=== PATIENT | female | born 1965 | race Caucasian/White ===

== ENCOUNTER → 2016-10-07 | Outpatient (CLI) | payer OTHER ==
[~2016-10-07] MED LIST: CATHETER FLUSH 10 ML SYR IV PRN; CLN150C PO; FURO80TA3 PO; HYDR-757 PO; INSU100I29 SQ; LIRA0.6P3 SQ; LOSA50TA36 PO; LOSA50TA6 PO; LSRT50T PO; METF-478 PO; METO100T2 PO; MTF500T PO; MTP100TCR PO; PIOG30TA38 PO; POTA10CA43 PO; PRAV20TA3 PO; REGADENOSON 0.4 MG/5 ML SYR (LEXISCAN) IV ONE; TAMS0.4C9 PO
--- OUTSIDE RECORDS SUMMARY | 2016-10-07 11:19 | XMS REPORT ---
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
[2016-10-07 12:53] VITALS: BP 155/97
[2016-10-07 12:56] VITALS: BP 168/99
[2016-10-07 12:59] VITALS: BP 163/95
--- NOTE | 2016-10-08 07:35 | STRESS TEST ---
PROCEDURE PHYSICIAN: CHIDI HERRERA DATE OF PROCEDURE: 10/07/2016 LEXISCAN MYOVIEW STRESS TEST REPORT REFERRING PHYSICIAN: Dr. Deandra Alfaro, [facility]. INDICATION FOR THE PROCEDURE: Chest pain. BASELINE HEART RATE: 72 BASELINE BLOOD PRESSURE: 163/96. BASELINE EKG: Sinus rhythm with no ischemic changes. SUMMARY: The patient was injected with 1.03 mCi of technetium 99 Myoview and the resting images were obtained. Then the patient received 0.4 mg of Lexiscan followed by 29.5 mCi of technetium 99 Myoview. Throughout the test, there were no EKG changes. The resting and stress images were reviewed and compared in the short axis, horizontal long axis, and vertical long axis views. Review of the images showed breast attenuation affecting the quality of the images. There is questionable ischemia involving the whole anterior wall and anterolateral wall. SSS is 15, SDS 11, TID value 1.03. On the gated images, the left ventricle appeared to be normal size with normal contractility. Calculated ejection fraction 72%. CONCLUSION: 1. The patient tolerated Lexiscan well. 2. Breast attenuation with questionable ischemia involving the whole anterior wall and anterolateral wall. 3. Normal left ventricular size with normal contractility. Calculated ejection fraction 72%. Job ID: [id number] Dictated Date: 10/07/2016 17:53:15 Drier Feeder Date: 10/08/2016 07:31:25 / curtis
== END ==
LOC: CARD 11:15
PROVIDERS: ATTEND Internal Medicine Cardiovascular Disease
DX: R07.9 Chest pain, unspecified (principal); R06.02 Shortness of breath; I10 Essential (primary) hypertension; E78.5 Hyperlipidemia, unspecified
CPT/HCPCS: 78452; 93017

== ENCOUNTER → 2016-10-08 | Outpatient (CLI) | payer OTHER ==
[~2016-10-08] MED LIST changes: -CATHETER FLUSH 10 ML SYR IV PRN; -REGADENOSON 0.4 MG/5 ML SYR (LEXISCAN) IV ONE
[2016-10-08 15:34] LABS: BASOPHILS % (AUTO) 1 % (0-10); EOSINOPHILS # (AUTO) 0.1 10^3/uL (0.0-0.3); EOSINOPHILS % (AUTO) 1 % (0-10); LYMPHOCYTES # (AUTO) 1.9 X 10^3 (1.0-4.0); LYMPHOCYTES % (AUTO) 30 % (12-44); MEAN CORPUSCULAR HEMOGLOBIN 29 PG (25-34); MEAN CORPUSCULAR HGB CONC 33 G/DL (32-36); MEAN CORPUSCULAR VOLUME 88 FL (80-99); MEAN PLATELET VOLUME 9.9 FL (7.4-10.4); MONOCYTES # (AUTO) 0.6 X 10^3 (0.0-1.0); MONOCYTES % (AUTO) 10 % (0-12); NEUTROPHILS # (AUTO) 3.8 X 10^3 (1.8-7.8); NEUTROPHILS % (AUTO) 59 % (42-75); PLATELET COUNT 251 10^3/uL (130-400); RED BLOOD COUNT 4.41 10^6/uL (4.35-5.85); RED CELL DISTRIBUTION WIDTH 13.1 % (10.0-14.5); WHITE BLOOD COUNT 6.4 10^3/uL (4.3-11.0)
[2016-10-08 15:35] LABS: BILIRUBIN,URINE NEGATIVE (NEGATIVE); KETONES,URINE NEGATIVE (NEGATIVE); LEUKOCYTE ESTERASE ,URINE 3+ (NEGATIVE); NITRITE,URINE NEGATIVE (NEGATIVE); PH,URINE 6 (5-9); PROTEIN,URINE 1+ (NEGATIVE); UROBILINOGEN,URINE NORMAL (NORMAL)
[2016-10-08 15:43] LABS: PROTHROMBIN TIME PATIENT 12.7 SEC (12.2-14.7)
[2016-10-08 15:54] LABS: ALANINE AMINOTRANSFERASE 18 U/L (0-55); ALBUMIN 3.9 G/DL (3.2-4.5); ANION GAP 9 MMOL/L (5-14); ASPARTATE AMINO TRANSFERASE 16 U/L (5-34); BILIRUBIN,TOTAL 0.4 MG/DL (0.1-1.0); BLOOD UREA NITROGEN 13 MG/DL (7-18); BUN/CREATININE RATIO 15; CALCIUM 9.3 MG/DL (8.5-10.1); CARBON DIOXIDE 25 MMOL/L (21-32); CHLORIDE 110 MMOL/L (98-107); CREATININE SERUM 0.88 MG/DL (0.60-1.30); GFR ESTIMATED > 60; GLUCOSE 119 MG/DL (70-105); POTASSIUM 3.9 MMOL/L (3.6-5.0); SODIUM 144 MMOL/L (135-145); TOTAL PROTEIN 7.2 G/DL (6.4-8.2)
[2016-10-08 16:03] LABS: SQUAMOUS EPITHELIAL CELL,UR 25-50 /HPF
--- NOTE | 2016-10-09 06:56 | ECHOCARDIOGRAPHY REPORT ---
PROCEDURE PHYSICIAN: CHIDI HERRERA DATE OF PROCEDURE: 10/08/2016 TWO DIMENSIONAL ECHOCARDIOGRAM REPORT PRIMARY PHYSICIAN: OTHER PHYSICIAN: REFERRING PHYSICIAN: Dr. Deandra Wetzel, [facility] ORDERING PHYSICIAN: INDICATION FOR THE PROCEDURE: Chest pain. MEASUREMENTS DERIVED VALUES LV DIAMETER (LAX) NORMALS NORMALS Diastolic 4.5 (3.6-5.2) Eject. Fract. 60% (60%+/-6%) Systolic (2.3-3.9) Diastolic Vol. % Shortening (0.22-0.42) Systolic Vol. Aortic Root IVS THICKNESS Diastolic 1.2 (0.6-1.1) LVPW THICKNESS Diastolic 1.2 (0.6-1.1) LA DIAMETER Systolic 3.8 (2.1-3.7) FINDINGS: 1. Technically difficult study. 2. The left ventricle is normal in size. Endocardium was not well visualized in all segments. Overall systolic function appeared to be normal. Estimated ejection fraction 60%. 3. The left atrium is normal in size. No clot or thrombus were seen within the left atrium. 4. The right atrium and right ventricle are normal in size. No clot or thrombus were seen within the right side. 5. Mitral valve is normal in morphology with mild mitral regurgitation noted by color Doppler flow. No mitral valve prolapse. No mitral valve stenosis. 6. Aortic valve is trileaflet with normal opening and closing pattern. No significant aortic valve stenosis or regurgitation was seen. 7. Tricuspid valve is normal in morphology with mild tricuspid regurgitation noted by color Doppler flow. Doppler across tricuspid valve estimated pulmonary artery pressure of 12+ right atrial pressure. 8. Pulmonic valve is functioning normally. 9. No pericardial effusion. CONCLUSION: 1. Normal left ventricular size and systolic function. Estimated ejection fraction 60%. Endocardium was not well visualized in all segments. Mild left ventricular hypertrophy was noted. 2. Mild mitral and tricuspid regurgitation. 3. Estimated pulmonary artery pressure of 20 mmHg. Job ID: [id number] Dictated Date: 10/08/2016 16:56:09 Chief Petroleum Engineer Date: 10/09/2016 06:53:24 / curtis
== END ==
LOC: CARD 14:24
PROVIDERS: ATTEND Internal Medicine Cardiovascular Disease
DX: R07.9 Chest pain, unspecified (principal); R06.02 Shortness of breath; I10 Essential (primary) hypertension; E78.5 Hyperlipidemia, unspecified
CPT/HCPCS: 36415; 80053; 81000; 85025; 85610; 87088; 93306

== ENCOUNTER 2016-10-09 06:53 | Day surgery (SDC) | payer OTHER ==
[2016-10-09] VITALS (11 sets, daily range): BP systolic 113–149; BP diastolic 64–100
[~2016-10-09] VITALS: Ht 167.6 cm; Wt 149.9 kg
[~2016-10-09 06:53] MED LIST changes: -FURO80TA3 PO; -INSU100I29 SQ; -LIRA0.6P3 SQ; -LOSA50TA36 PO; -METF-478 PO; -METO100T2 PO; -PIOG30TA38 PO; -POTA10CA43 PO; -PRAV20TA3 PO
[2016-10-09] MEDS ORDERED: NS IV 1000 ML 1,000 ML ONE (07:11)
[2016-10-09] MEDS ORDERED: HEParin (CATH LAB) 2,000 ML IV ONE (07:11)
[2016-10-09] MEDS ORDERED: LIDOCAINE 1% INJ 20 ML (XYLOCAINE) VIAL ONE (07:11)
[2016-10-09] MEDS ORDERED: MIDAZOLAM 5 MG/5 ML (VERSED) VIAL ONE ×2 (07:39→08:22)
[2016-10-09] MEDS ORDERED: fentaNYL INJECTION 100 MCG/2 ML AMP ONE ×2 (07:39→08:22)
[2016-10-09] MEDS ORDERED: NS IV 1000 ML 1,000 ML IV SCH ×2 (07:45→08:48)
--- NOTE | 2016-10-09 07:50 | Cardiac Procedure Note-CS/ASA ---
Pre-Procedure Note Pre-Op Procedure Note H&P Reviewed The H&P was reviewed, patient examined and no changes noted. Date H&P Reviewed: Oct 09, 2016 Time H&P Reviewed: 07:49 Conscious Sedation Pre-Proced Time Reviewed: 07:49 ASA Class: 3 Airway Mallampati Classification: ([place] appropriate class) I. II. III, IV Lungs Heart ASA score ASA 1: a normal healthy patient ASA 2: a patient with a mild systemic disease (mid diabetes, controlled hypertension, obesity x ASA 3: a patient with a severe systemic disease that limits activity (angina , COPD, prior Myocardial infarction) ASA 4: a patient with an incapacitating disease that is a constant threat to life (CHF, renal failure) ASA 5: a moribund patient not expected to survive 24 hrs. (ruptured aneurysm) ASA 6: a declared brain patient whose organs are being harvested. For emergent operations, add the letter E after the classification Grade 3 Sedation Plan: Analgesia, Amnesia, Plan communicated to team members, Discussed options with patient/fam, Discussed risks with patient/fam Note The patient is an appropriate candidate to undergo the planned procedure, sedation, and anesthesia. The patient immediately re-assessed prior to indication. CHIDI HERRERA MD Oct 09, 2016 07:50
[2016-10-09] MEDS ORDERED: NITROGLYCERIN DRIP 25 MG/D5W 250 ML IV ONE (08:05)
[2016-10-09] MEDS ORDERED: HEParin 1000 UNIT/ML (10ML VIAL) FOR BOLUS ONE (08:05)
[2016-10-09] MEDS ORDERED: VERAPAMIL 5 MG/2 ML (CALAN) VIAL IV ONE (08:05)
[2016-10-09] MEDS ORDERED: METO100T2 PO (08:26)
[2016-10-09] MEDS ORDERED: LOSA50TA36 PO (08:26)
[2016-10-09] MEDS ORDERED: FURO80TA3 PO (08:26)
[2016-10-09] MEDS ORDERED: METF-478 PO (08:26)
[2016-10-09] MEDS ORDERED: PRAV20TA3 PO (08:26)
[2016-10-09] MEDS ORDERED: POTA10CA43 PO (08:26)
[2016-10-09] MEDS ORDERED: LIRA0.6P3 SQ (08:27)
[2016-10-09] MEDS ORDERED: INSU100I29 SQ (08:27)
[2016-10-09] MEDS ORDERED: PIOG30TA38 PO (08:27)
[2016-10-09] MEDS ORDERED: PATIENT MAY USE OWN MEDS, ALL PO SCH (09:00)
[2016-10-09] MEDS ORDERED: FLU TRIvalent (5 YOA+) 2016-17 (AFLURIA) 0.5 ML IM ONE (09:15)
[2016-10-09] MEDS ORDERED: HYDROcodone/APAP 5 MG/325 MG (LORTAB) TAB PO ONE (10:00)
--- NOTE | 2016-10-09 10:00 | Discharge Inst-Post CATH ---
Discharge Inst-CATH Post Cardiac Cath D/C Inst Follow Up/Plan Appointment with Dr Juarez's office in 2-4 weeks Hold Metformin for 48 hours CARDIAC CATH DISCHARGE INSTRUCTIONS *Hold Metformin for 48 hours post heart cath. ACTIVITY * Go Home directly and rest. * Limit activity of the leg (or wrist if it was used) for 7 days including aerobics, swimming, jogging, bicycling, etc. * Restrict stair-climbing for 7 days if possible, if not, climb up with your non -cath leg, then bring together on the same step. * Avoid lifting, pushing, pulling or excessive movement of the affected extremity for 7 days. * Customary sexual activity may be resumed after 2 days-use caution not to use a position that strains or causes pain to the affected extremity. * No driving for 24 hours. * NO SMOKING. * Avoid straining for bowel movements for 7 days. * Gentle walking on level ground is allowed. * Returning to work will depend on the type of procedure and the results. Your doctor will discuss this with you. CALL YOUR DOCTOR FOR ANY OF THE FOLLOWING: *If bleeding from the puncture site occurs- Apply gentle pressure to site with clean cloth and call your doctor or EMS. * If a knot or lump forms under the skin, increases in size, or causes pain. * If bruising appears to be worsening or moving further down your leg instead of disappearing. * Temperature above 101 F. CARE OF YOUR GROIN INCISION; * Bruising or purple discoloration of the skin near the puncture site is common. * You may shower only, no bathtub bathing for 5 days. Be careful to avoid slipping as your leg may feel stiff. * If a closure device was used on your femoral artery, please see the attached guide regarding care of the device and your leg. * REMOVE the dressing from your groin the next day after your procedure in the shower. CARE OF YOUR WRIST INCISION; * Bruising or purple discoloration of the skin near the puncture site is common. * You may shower. * DO NOT submerge wrist. * Remove dressing in 24 hours. CHIDI JUAREZ MD Oct 09, 2016 10:00
[2016-10-09] MEDS ORDERED: HYDROcodone/APAP 5 MG/325 MG (LORTAB) TAB ONE (10:01)
--- NOTE | 2016-10-09 10:45 | DISCHARGE SUMMARY ---
PROCEDURE PHYSICIAN: CHIDI HERRERA DATE OF PROCEDURE: 10/09/2016 REFERRING PHYSICIAN: [facility]. BRIEF HISTORY: Mrs. Hall is a 51-year-old lady with history of hypertension, recurrent chest pain. She had an abnormal stress test. She was scheduled for cardiac catheterization. PROCEDURE NOTE: After explaining the procedure to the patient, all pros and cons were explained. All questions were answered. The patient signed a consent, then she was placed on the cardiac catheterization laboratory. The right wrist was prepped in a sterile fashion, ultrasound was used for access to the right radial artery. 6-Ukrainian sheath was placed. The patient was given a combination of nitroglycerin with verapamil and followed by 5,000 units of IV heparin. Then I used Freddie catheter, advanced to the left coronary system, nonselective angiogram was done, exchanged over long Storq wire into Eric right catheter. The Eric right catheter into the right coronary artery, angiogram was done. The Freddei catheter was prolapsed into the left ventricular cavity. Pressure was measured, left ventriculogram was done. Pullback LV to aorta was done. At the end of the procedure, sheath was removed with manual pressure. No complication. FINDINGS: HEMODYNAMICS: LV pressure 139/30, end-diastolic pressure of 30, aortic pressure 127/81, mean of 103. ANATOMY: 1. LEFT MAIN CORONARY ARTERY: The left main coronary artery is bifurcating to left anterior descending and left circumflex artery with no obstructive disease. 2. LEFT ANTERIOR DESCENDING ARTERY: The left anterior descending artery is slightly tortuous with mild disease, nonobstructive disease. 3. LEFT CIRCUMFLEX ARTERY: The left circumflex artery is moderate in size with no obstructive disease. 4. RIGHT CORONARY ARTERY: The right coronary artery is dominant artery with no obstructive disease. 5. LEFT VENTRICULOGRAM: Left ventriculogram was done in the right anterior oblique position. The left ventricle is normal in size. Systolic function is normal. Estimated ejection fraction 60%. CONCLUSION: 1. Mild coronary artery disease, nonobstructive disease. 2. Normal left ventricular systolic function. Estimated ejection fraction 60%. DISCUSSION AND RECOMMENDATION: Mrs. Hall's abnormal stress test is probably due to extracardiac attenuation. Medical therapy is recommended. No intervention is warranted. FINAL DIAGNOSES: 1. Chest pain, nonspecific etiology. 2. Coronary artery disease. 3. Hypertension. 4. Hyperlipidemia. Job ID: [id number] Dictated Date: 10/09/2016 08:53:46 Air Quality Technician Date: 10/09/2016 10:44:12/iljuliet
--- NOTE | 2016-10-09 12:23 | Diagnostic Imaging Report ---
INDICATION: Lung mass. TECHNIQUE: Two view chest 12:07 PM CORRELATION STUDY: CT 11/04/2014 FINDINGS: Previously noted nodule in the right lung base on prior CT imaging is barely perceptible on chest radiograph. This measures approximately 19 mm. Previously measured approximately [address] imaging. Remaining lung asif are overall clear and unremarkable. Heart size, mediastinum and hilar structures likely accentuated by limited depth of inspiration. Mild multilevel degenerative changes with slightly accentuated thoracic kyphotic curvature. IMPRESSION: The known right lower lobe pulmonary nodule is barely visualized on chest radiograph. There is a slight increase in size present. However, this may be owing to differences in technique, however, an increase in size is not excluded. Consideration for repeat CT imaging of the chest is recommended. Dictated by: Dictated on workstation # [id number]
== END 2016-10-09 13:05 | disposition home or self-care (01) ==
LOC: CATH 06:53 → SURG 09:13 → CATH 13:05
PROVIDERS: ATTEND Internal Medicine Cardiovascular Disease
DX: R94.39 Abnormal result of other cardiovascular function study (principal); R07.89 Other chest pain; E78.5 Hyperlipidemia, unspecified; I10 Essential (primary) hypertension; I25.10 Atherosclerotic heart disease of native coronary artery without angina pectoris; E66.01 Morbid (severe) obesity due to excess calories; E11.9 Type 2 diabetes mellitus without complications; G47.33 Obstructive sleep apnea (adult) (pediatric); R91.8 Other nonspecific abnormal finding of lung field; Z79.899 Other long term (current) drug therapy; Z79.84 Long term (current) use of oral hypoglycemic drugs; Z68.43 Body mass index [BMI] 50.0-59.9, adult
CPT/HCPCS: 71020; 93458

== ENCOUNTER 2017-05-04 16:31 | Emergency (ER) | payer SELFPAY ==
[~2017-05-04] VITALS: Ht 167.6 cm; Wt 149.9 kg
[~2017-05-04 16:31] MED LIST changes: +FURO80TA3 PO; +INSU100I29 SQ; +LIRA0.6P3 SQ; +LOSA50TA36 PO; +METF-478 PO; +METO100T2 PO; +PIOG30TA38 PO; +POTA10CA43 PO; +PRAV20TA3 PO
--- OUTSIDE RECORDS SUMMARY | 2017-05-04 16:37 | XMS REPORT ---
Author Author GIORGIO PEAROSN Organization eClinicalWorks Address Unknown Phone Unavailable Care Team Providers Care Industrial Nurse Name Role Phone GIORGIO PEARSON CP Unavailable Allergies No Known Allergies Problems Problem Type Condition Code Onset Dates Condition Status Problem Screening examination for pulmonary tuberculosis V74.1 Active Problem Acute bronchitis 466.0 Active Problem Abdominal pain, unspecified site 789.00 Active Problem Cellulitis 682.9 Active Problem Chronic pain 338.29 Active Problem Sleep apnea 780.57 Active Problem Encounter for long-term (current) use of other medications V58.69 Active Problem Shortness of breath 786.05 Active Problem Hypertension 401.9 Active Problem Unspecified myalgia and myositis 729.1 Active Problem Cellulitis and abscess of unspecified site 682.9 Active Problem Pain in soft tissues of limb 729.5 Active Problem Calculus of kidney 592.0 Active Problem Swelling, mass, or lump in chest 786.6 Active Problem Acute sinusitis, unspecified 461.9 Active Problem Health examination of defined subpopulation V70.5 Active Problem Lumbago 724.2 Active Problem Oral aphthae 528.2 Active Problem Diabetes mellitus without mention of complication, type II or unspecified type, not stated as uncontrolled 250.00 Active Problem Radial styloid tenosynovitis 727.04 Active Medications No Known Medications Results No Known Results Summary Purpose eClinicalWorks Submission
--- OUTSIDE RECORDS SUMMARY | 2017-05-04 16:37 | XMS REPORT ---
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 674484959 Problem Fibromyalgia M79.7 Active 152390864 Problem Chronic pain syndrome G89.4 Active 663507574 Problem Hyperlipidemia, unspecified hyperlipidemia type E78.5 Active 89074353 Problem Thyroid disorder E07.9 Active 20760074 Problem Hypercholesterolemia E78.00 Active 65235108 Problem Pedal edema R60.0 Active 483187346 Problem Cough R05 Active 71457589 Problem Central sleep apnea due to medical condition G47.37 Active 04538324 Problem Sleep apnea G47.30 Active 11580789 Problem Obesity E66.9 Active 784486366 Problem History of kidney stones Z87.442 Active 385507653 Problem HTN (hypertension) I10 Active 56359203 Problem Diabetes E11.9 Active 346924612 ALLERGIES Substance Reaction Event Type Date Status Lisinopril dizziness Drug Allergy Aug, Active SOCIAL HISTORY No smoking Hx information available PLAN OF CARE Activity Details Follow Up 2 Weeks Reason:cough VITAL SIGNS Height 66 in 2016-09-03 Weight 321.4 lbs 2016-09-03 Temperature 97.8 degrees Fahrenheit 2016-09-03 Heart Rate 78 bpm 2016-09-03 Respiratory Rate 20 2016-09-03 BMI 51.87 kg/m2 2016-09-03 Blood pressure systolic 128 mmHg 2016-09-03 Blood pressure diastolic 86 mmHg 2016-09-03 MEDICATIONS Medication Instructions Dosage Frequency Start Date End Date Duration Status ProAir HFA 108 (90 Base) MCG/ACT Inhalation every 4 hrs 2 puffs as needed 4h Aug, Active Actos 45 MG Orally Once a day 1 tablet 24h 24 Apr, 2015 Active Losartan Potassium 50 mg Orally Once a day 1 tablet 24h Active Potassium Chloride ER 10 MEQ Orally Twice a day 1 tablet with food 12h Aug, Sep, 30 day(s) Active Victoza 18 MG/3ML Subcutaneous Once a day 1.8 24h Active Insulin Detemir 100 UNIT/ML Subcutaneous once a day 25 units nightly 24h Feb, Active Pen [place] 31G X 6 MM as directed 24h Aug, Active Metformin HCl 500 MG Orally Twice a day 2 tablet with meals 12h Active ProAir HFA 90 mcg/actuation inhale 2-4 puffs by Inhalation route every 4 hours as needed PRN shortness of breath/cough Jul, Active Flomax 0.4 MG 1 capsule by Oral route 1 time per day Oct, Active Furosemide 40 mg Orally Once a day 1 tablet 24h Aug, 30 day(s) Active Pravastatin Sodium 20 mg Orally Once a day 1 tablet 24h Apr, 90 days Active Silvadene 1 % Externally Once a day 1 application to affected area 24h Aug, Active Levaquin 500 MG Orally Once a day 1 tablet 24h Aug, Sep, 10 day(s) Active Neurontin 100 MG Orally Three times a day 1 capsule 8h Active Metoprolol Succinate ER 100 MG Orally 2 times a day 1 tab bid 12h Nov, Active Invokana 300 MG Orally Once a day 1 tablet 24h Nov, Active RESULTS Name Result Date Reference Range A1C (IN HOUSE) 2016-09-03 A1C IN HOUSE 6.2 4.3 - 5.6 % Previous A1c 5.8 Lot [id number] Exp date 06/2018 MICROALBUMIN, URINE (IN HOUSE) 2016-09-03 MICROALBUMIN normal Lot # [id number] Exp date 08/2017 Clarity clear Color yellow ALB 10 CRE 300 A:C (IN HOUSE) <30 Control + Control Lot # Exp UA LONG DIP (IN HOUSE) 2016-09-03 Lot # [id number] Exp date 04/2017 Clarity clear Color yellow Odor none GLU negative BENITEZ negative KET negative SG >=1.030 BLO negative pH 5.5 Protein negative URO 0.2 NIT negative ARSENIO 1+ Lot # Exp date Xray : Chest (IN HOUSE) 2016-09-03 CULTURE, URINE 2016-09-03 Urine Culture, Routine Final report Result 1 No growth PROCEDURES Procedure Date Ordered Related Diagnosis Body Site MICROALBUMIN, SEMIQUANT Sep 03, 2016 CHEST X-RAY Sep 03, 2016 Office Visit, Est Pt., Level 4 Sep 03, 2016 GLYCATED HEMOGLOBIN TEST Sep 03, 2016 URINE CULTURE/COLONY COUNT Sep 03, 2016 IMMUNIZATIONS No Known Immunizations
--- OUTSIDE RECORDS SUMMARY | 2017-05-04 16:37 | XMS REPORT ---
Author GIORGIO Nick Organization eClinicalWorks Address Unknown Phone Unavailable Care Team Providers Care Compensator Name Role Phone GIORGIO PEARSON Unavailable Allergies No Known Allergies Problems Problem Type Condition Code Onset Dates Condition Status Problem Sleep apnea 780.57 Active Problem History of kidney stones Z87.442 Active Problem HTN (hypertension) I10 Active Problem HTN (hypertension) with goal to be determined I10 Active Problem Chronic pain syndrome G89.4 Active Problem Fibromyalgia M79.7 Active Problem Obesity E66.9 Active Problem Sleep apnea G47.30 Active Problem Diabetes E11.9 Active Problem 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
--- OUTSIDE RECORDS SUMMARY | 2017-05-04 16:37 | XMS REPORT ---
Author Author HENOK BENNETT Organization eClinicalWorks Address Unknown Phone Unavailable Care Team Providers Care Business Systems Technician Name Role Phone HENOK BENNETT CP Unavailable [...] Start Date End Date Status Dosage Invokana [facility][NOTE 3] [address]-14 300 MG Orally Once a day December 06, 2015 1 tablet Results No Known Results Summary Purpose eClinicalWorks Submission
--- OUTSIDE RECORDS SUMMARY | 2017-05-04 16:37 | XMS REPORT ---
Author GIORGIO Nick [facility] eClinicalWorks Address Unknown Phone Unavailable Care Team Providers Care Clinique Counter Manager Name Role Phone GIORGIO PEARSON CP Unavailable Allergies, Adverse Reactions, Alerts Substance Reaction Event Type Lisinopril Info Not Available Drug Allergy Problems Problem Type Condition Code Onset Dates Condition Status Problem Abdominal pain, unspecified site 789.00 Active Problem Shortness of breath 786.05 Active Problem Acute bronchitis 466.0 Active Problem Sleep apnea 780.57 Active Problem Calculus of kidney 592.0 Active Problem Cellulitis 682.9 Active Assessment Cellulitis, unspecified L03.90 Active Problem HTN (hypertension) I10 Active Problem Unspecified myalgia and myositis 729.1 Active Problem Encounter for long-term (current) use of other medications V58.69 Active Problem Chronic pain 338.29 Active Problem Hypertension 401.9 Active Problem Pain in soft tissues of limb 729.5 Active Problem Lumbago 724.2 Active Problem Swelling, mass, or lump in chest 786.6 Active Problem Cellulitis and abscess of unspecified site 682.9 Active Problem Health examination of defined subpopulation V70.5 Active Problem Oral aphthae 528.2 Active Problem Diabetes mellitus without mention of complication, type II or unspecified type, not stated as uncontrolled 250.00 Active Problem Radial styloid tenosynovitis 727.04 Active Problem Acute sinusitis, unspecified 461.9 Active Problem Screening examination for pulmonary tuberculosis V74.1 Active Medications Medication Code System Code Instructions Start Date End Date Status Dosage Neurontin [facility] [address]-06 100 MG Orally Twice a day Jul 10, 2014 1 capsule by Oral route 3 times per day PRN for pain Hydrocodone-Acetaminophen [facility] [address]-25 10-325 MG Orally every 6 hrs Aug 12, 2015 1 tablet as needed Metformin HCl [facility] [address]-62 1000 MG Orally Twice a day Jun 11, 2015 1 tablet with meals Pravastatin Sodium [facility] [address]-89 20 MG Orally Once a day May 03, 2015 1 tablet losartan ND 0 50 mg Once a day Aug 13, 2014 Aug 30, 2015 take 1 tablet (50 mg) by oral route once daily Actos [facility] [address]-91 30 MG Orally Once a day May 02, [address] [facility] [address]-57 0.4 mg November 05, 2014 1 capsule by Oral route 1 time per day ProAir HFA [facility] [address]-64 90 mcg/actuation Jul 10, 2014 inhale 2-4 puffs by Inhalation route every 4 hours as needed PRN shortness of breath/ cough Sulfamethoxazole-Trimethoprim [facility] [address]-96 800-160 MG Orally Twice a day Aug 12, 2015 Aug 22, 2015 1 tablet Metoprolol Succinate ER [facility] [address]-95 100 MG 1 TAB orally 2 times a day November 20, 2013 1 tab bid Procedures Procedure Coding System Code Date Office Visit, Est Pt., Level 3 CPT-4 06612 Aug 16, 2015 Vital Signs Date/Time: Aug 16, 2015 Temperature 98.1 F Weight 341.9 lbs Height 66 in BMI 55.18 Index Blood Pressure Diastolic 90 mmHg Blood Pressure Systolic 140 mmHg Cardiac Monitoring Heart Rate 72 bpm Results No Known Results Summary Purpose eClinicalWorks Submission
--- OUTSIDE RECORDS SUMMARY | 2017-05-04 16:38 | XMS REPORT ---
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 465711571 Problem Fibromyalgia M79.7 Active 557104101 Problem Chronic pain syndrome G89.4 Active 567883267 Problem Hyperlipidemia, unspecified hyperlipidemia type E78.5 Active 96157081 Problem Thyroid disorder E07.9 Active 13317453 Problem Hypercholesterolemia E78.00 Active 83443874 Problem Pedal edema R60.0 Active 168862630 Problem Cough R05 Active 69843454 Problem Central sleep apnea due to medical condition G47.37 Active 48024542 Problem Sleep apnea G47.30 Active 30865046 Problem Obesity E66.9 Active 269396956 Problem History of kidney stones Z87.442 Active 016250223 Problem HTN (hypertension) I10 Active 52334436 Problem Diabetes E11.9 Active 698494814 ALLERGIES Substance Reaction Event Type Date Status Lisinopril dizziness Drug Allergy Sep, Active SOCIAL HISTORY Never Assessed PLAN OF CARE Activity Details Follow Up 2 Weeks Reason:cp Pending Test MAGNESIUM, SERUM Pending Test BMP VITAL SIGNS Height 66 in 2016-09-21 Weight 335.6 lbs 2016-09-21 Temperature 97.9 degrees Fahrenheit 2016-09-21 Heart Rate 84 bpm 2016-09-21 Respiratory Rate 20 2016-09-21 BMI 54.16 kg/m2 2016-09-21 Blood pressure systolic 138 mmHg 2016-09-21 Blood pressure diastolic 84 mmHg 2016-09-21 MEDICATIONS Medication Instructions Dosage Frequency Start Date End Date Duration Status Neurontin 100 MG Orally Three times a day 1 capsule 8h Active Metoprolol Succinate ER 100 MG Orally 2 times a day 1 tab bid 12h 14 Nov, 2013 Active Pravastatin Sodium 20 mg Orally Once a day 1 tablet 24h Apr, Active Victoza 18 MG/3ML Subcutaneous Once a day 1.8 24h Active Furosemide 40 mg Orally Once a day 2 capsules 24h Aug, 30 day(s ) Active Pen [place] 31G X 6 MM as directed 24h Aug, Active Metformin HCl 500 MG Orally Twice a day 2 tablet with meals 12h Active Hydrocodone-Acetaminophen 10-325 MG Orally every 6 hrs 1 tablet as needed 6h Aug, Active Potassium Chloride ER 10 MEQ Orally Twice a day 2 tablet with food 12h Aug, Oct, 30 day(s) Active Silvadene 1 % Externally Once a day 1 application to affected area 24h Aug, Active Actos 45 MG Orally Once a day 1 tablet 24h Apr, Active ProAir HFA 108 (90 Base) MCG/ACT Inhalation every 4 hrs 2 puffs as needed 4h Aug, Active Insulin Detemir 100 UNIT/ML Subcutaneous once a day 25 units nightly 24h Feb, Active Losartan Potassium 50 mg Orally Once a day 1 tablet 24h Active Flomax 0.4 MG 1 capsule by Oral route 1 time per day Oct, Active RESULTS No Results PROCEDURES Procedure Date Ordered Result Body Site EKG, TRACING (IN-HOUSE) 2016-09-21 N/A ASSAY OF MAGNESIUM Sep 21, 2016 ELECTROCARDIOGRAM, TRACING Sep 21, 2016 BASIC METABOLIC PANEL Sep 21, 2016 IMMUNIZATIONS No Known Immunizations MEDICAL (GENERAL) HISTORY Type Description Date Medical History MRSA Medical History Type 2 DM Medical History Alcoholism-has been sober for 10 years Medical History Sexual contact with Hep C Medical History Morbid Obesity Medical History Hypertension Medical History Kidney stones november 04 2014 Medical History Mass in lung 13mm seeing Dr. Segura non cancerous Medical History Sleep Apnea Medical History cellulitis left leg Surgical History Hysterectomy-Total for adhesions 1987 Surgical History section 1982 & 1987 Surgical History cholecystectomy 1996 Hospitalization History surgeries
--- OUTSIDE RECORDS SUMMARY | 2017-05-04 16:38 | XMS REPORT ---
Author GIORGIO Nick [facility] eClinicalWorks Address Unknown Phone Unavailable Care Team Providers Care Storekeeper Engineering Name Role Phone GIORGIO PEARSON CP Unavailable [...] 592.0 Active Problem Cellulitis 682.9 Active Assessment Cellulitis and abscess of unspecified site 682.9 Active Problem HTN (hypertension) I10 Active Problem [...] Instructions Start Date End Date Status Dosage Victoza [facility] [address]-00 18 MG/3ML Subcutaneous Once a day Aug 16, 2015 Aug 10, 2016 1.8 Metformin HCl [facility] [address]-38 1000 MG Orally Twice a day Jun 11, 2015 1 tablet with meals Metoprolol Succinate ER [facility] [address]-05 100 MG 1 TAB orally 2 times a day November 20, 2013 1 tab bid Pravastatin Sodium [facility] [address]-61 20 MG Orally Once a day May 03, 2015 1 tablet Silvadene [facility] [address]-05 1 % Externally Once a day Aug 19, 2015 1 application to affected area Sulfamethoxazole-Trimethoprim [facility] [address]-74 800-160 MG Orally Twice a day Aug 12, 2015 Aug 22, 2015 1 tablet Flomax [facility] [address]-09 0.4 mg November 05, 2014 1 capsule by Oral route 1 time per day Hydrocodone-Acetaminophen [facility] [address]-04 10-325 MG Orally every 6 hrs Aug 12, 2015 1 tablet as needed Pen [place] [facility] [address]-40 31G X 6 MM Once a day Aug 16, 2015 as directed Neurontin [facility] [address]-94 100 MG Orally Twice a day Jul 10, 2014 1 capsule by Oral route 3 times per day PRN for pain ProAir HFA [facility] [address]-65 90 mcg/actuation Jul 10, 2014 inhale 2-4 puffs by Inhalation route every 4 hours as needed PRN shortness of breath/ cough Actos [facility] [address]-56 30 MG Orally Once a day May 02, 2015 1 tablet losartan [facility] 0 50 mg Once a day Aug 13, 2014 Aug 30, 2015 take 1 tablet (50 mg) by oral route once daily Procedures Procedure Coding System Code Date Office Visit, Est Pt., Level 3 CPT-4 33324 Aug 20, 2015 Vital Signs Date/Time: Aug 20, 2015 Temperature 97.6 F Weight 342 lbs Height 66 in BMI 55.19 Index Blood Pressure Diastolic 84 mmHg Blood Pressure Systolic 142 mmHg Cardiac Monitoring Heart Rate 78 bpm Results No Known Results Summary Purpose eClinicalWorks Submission
--- OUTSIDE RECORDS SUMMARY | 2017-05-04 16:38 | XMS REPORT ---
Author Author GIORGIO PEARSON Organization 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 046851318 Problem Fibromyalgia M79.7 Active 765578026 Problem Chronic pain syndrome G89.4 Active 825069081 Problem Hyperlipidemia, unspecified hyperlipidemia type E78.5 Active 68256799 Problem Thyroid disorder E07.9 Active 41912495 Problem Hypercholesterolemia E78.00 Active 54356143 Problem Pedal edema R60.0 Active 303977173 Problem Cough R05 Active 89098672 Problem Central sleep apnea due to medical condition G47.37 Active 69071819 Problem Sleep apnea G47.30 Active 72865664 Problem Obesity E66.9 Active 819863613 Problem History of kidney stones Z87.442 Active 364258598 Problem HTN (hypertension) I10 Active 01341701 Problem Diabetes E11.9 Active 485782023 ALLERGIES Substance Reaction Event Type Date Status Lisinopril dizziness Drug Allergy Sep, Active SOCIAL HISTORY Never Assessed PLAN OF CARE Activity Details Follow Up 4 Weeks Reason:edema VITAL SIGNS Height 66 in 2016-09-28 Weight 335.0 lbs 2016-09-28 Temperature 97.6 degrees Fahrenheit 2016-09-28 Heart Rate 82 bpm 2016-09-28 Respiratory Rate 20 2016-09-28 BMI 54.06 kg/m2 2016-09-28 Blood pressure systolic 127 mmHg 2016-09-28 Blood pressure diastolic 86 mmHg 2016-09-28 MEDICATIONS Medication Instructions Dosage Frequency Start Date End Date Duration Status Silvadene 1 % Externally Once a day 1 application to affected area 24h Aug, Active Losartan Potassium 50 mg Orally Once a day 1 tablet 24h Active Actos 45 MG Orally Once a day 1 tablet 24h 24 Apr, 2015 Active Pen [place] 31G X 6 MM as directed 24h 08 Aug, 2015 Active Lasix 80 MG Orally Once a day 1 tablet 24h 20 Sep, 2016 90 days Active Neurontin 100 MG Orally Three times a day 1 capsule 8h Active ProAir HFA 108 (90 Base) MCG/ACT Inhalation every 4 hrs 2 puffs as needed 4h Aug, Active Metoprolol Succinate ER 100 MG Orally 2 times a day 1 tab bid 12h Nov, Active Potassium Chloride ER 10 MEQ Orally Twice a day 2 tablet with food 12h Aug, 30 day(s) Active Victoza 18 MG/3ML Subcutaneous Once a day 1.8 24h Active Furosemide 40 mg Orally Once a day 2 capsules 24h Aug, 30 day(s ) Active Metformin HCl 500 MG Orally Twice a day 2 tablet with meals 12h Active Insulin Detemir 100 UNIT/ML Subcutaneous once a day 25 units nightly 24h Feb, Active Pravastatin Sodium 20 mg Orally Once a day 1 tablet 24h Apr, Active RESULTS No Results PROCEDURES No Known procedures IMMUNIZATIONS No Known Immunizations MEDICAL (GENERAL) HISTORY [...]
--- OUTSIDE RECORDS SUMMARY | 2017-05-04 16:38 | XMS REPORT ---
Author GIORGIO Nick [facility] eClinicalWorks Address Unknown Phone Unavailable Care Team Providers Care Hair Assistant Name Role Phone GIORGIO PEARSON CP Unavailable Allergies, Adverse Reactions, Alerts Substance Reaction Event Type Lisinopril Info Not Available Drug Allergy Problems Problem Type Condition ICD-9 Code Onset Dates Condition Status Problem Radial styloid tenosynovitis 727.04 Active Problem Abdominal pain, unspecified site 789.00 Active Problem Screening examination for pulmonary tuberculosis V74.1 Active Problem Chronic pain 338.29 Active Assessment Unspecified myalgia and myositis 729.1 Active Problem Hypertension 401.9 Active Assessment Diabetes mellitus without mention of complication, type II or unspecified type, not stated as uncontrolled 250.00 Active Assessment Lumbago 724.2 Active Problem Cellulitis 682.9 Active Problem Shortness of breath 786.05 Active Problem Acute bronchitis 466.0 Active Problem Unspecified myalgia and myositis 729.1 Active Problem Encounter for long-term (current) use of other medications V58.69 Active Problem Swelling, mass, or lump in chest 786.6 Active Problem Cellulitis and abscess of unspecified site 682.9 Active Assessment Cellulitis 682.9 Active Problem Calculus of kidney 592.0 Active Problem Diabetes mellitus without mention of complication, type II or unspecified type, not stated as uncontrolled 250.00 Active Problem Acute sinusitis, unspecified 461.9 Active Problem Pain in soft tissues of limb 729.5 Active Problem Health examination of defined subpopulation V70.5 Active Problem Lumbago 724.2 Active Problem Oral aphthae 528.2 Active Medications Medication Code System Code Instructions Start Date End Date Status Dosage Keflex [facility] [address]-09 500 MG Orally Four times a day Apr 18, 2015 Apr 28, 2015 1 capsule ProAir HFA [facility] [address]-85 90 mcg/actuation Jul 10, 2014 inhale 2-4 puffs by Inhalation route every 4 hours as needed PRN shortness of breath/ cough Hydrocodone-Acetaminophen [facility] [address]-86 7.5-325 MG Orally every 8 hrs Mar 20, 2015 Apr 19, 2015 1 tablet as needed metformin NDC 0 500 mg Aug 13, 2014 take 1 tablet by Oral route 2 times per day with the evening meal Flomax [facility] [address]-30 0.4 mg November 05, 2014 1 capsule by Oral route 1 time per day Metoprolol Succinate ER [facility] [address]-01 100 mg 1 TAB orally 2 times a day November 20, 2013 2 tablet by Oral route 2 times per day losartan NDC 0 50 mg Aug 13, 2014 take 1 tablet (50 mg) by oral route once daily Neurontin [facility] [address]-83 100 mg Jul 10, 2014 1 capsule by Oral route 3 times per day PRN for pain Victoza [facility] [address]-73 18 MG/3ML Subcutaneous Once a day 0.2 ml Procedures Procedure Coding System Code Date Office Visit, Est Pt., Level 4 CPT-4 53413 Apr 18, 2015 Vital Signs Date/Time: Apr 18, 2015 Temperature 96.7 F Weight 345.2 lbs Height 66 in BMI 55.71 Index Blood Pressure Diastolic 70 mmHg Blood Pressure Systolic 112 mmHg Cardiac Monitoring Heart Rate 78 bpm Results No Known Results Summary Purpose eClinicalWorks Submission
--- OUTSIDE RECORDS SUMMARY | 2017-05-04 16:38 | XMS REPORT ---
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 [address]-13 100 UNIT/ML Subcutaneous once a day March 02, 2016 25 units nightly Results No Known Results Summary Purpose eClinicalWorks Submission
--- OUTSIDE RECORDS SUMMARY | 2017-05-04 16:38 | XMS REPORT ---
Author GIORGIO Nick [facility] eClinicalWorks Address Unknown Phone Unavailable Care Team Providers Care Teacher Of The Sight Impaired Name Role Phone GIORGIO PEARSON CP Unavailable [...] Instructions Start Date End Date Status Dosage Pravastatin Sodium [facility] [address]-87 20 MG Orally Once a day May 03, 2015 1 tablet Metoprolol Succinate ER [facility] [address]-37 100 MG 1 TAB orally 2 times a day November 20, 2013 1 tab bid ProAir HFA [facility] [address]-67 90 mcg/actuation Jul 10, 2014 inhale 2-4 puffs by Inhalation route every 4 hours as needed PRN shortness of breath/ cough Metformin HCl [facility] [address]-94 1000 MG Orally Twice a day Jun 11, 2015 1 tablet with meals Sulfamethoxazole-Trimethoprim [facility] [address]-38 800-160 MG Orally Twice a day Aug 12, 2015 Aug 22, 2015 1 tablet Actos [facility] [address]-39 30 MG Orally Once a day May 02, 2015 1 tablet losartan NDC 0 50 mg Once a day Aug 13, 2014 Aug 30, 2015 take 1 tablet (50 mg) by oral route once daily Neurontin [facility] [address]-50 100 MG Orally Twice a day Jul 10, 2014 1 capsule by Oral route 3 times per day PRN for pain Hydrocodone-Acetaminophen [facility] [address]-77 10-325 MG Orally every 6 hrs Aug 12, 2015 1 tablet as needed Procedures Procedure Coding System Code Date CULTURE, BACTERIA, OTHER CPT-4 42441 Aug 12, 2015 ROCEPHIN 1 GM (IM) CPT-4 J0696 Aug 12, 2015 CULTURE BACTERIA ANAEROBIC CPT-4 46333 Aug 12, 2015 Office Visit, Est Pt., Level 4 CPT-4 48017 Aug 12, 2015 THER/PROPH/DIAG INJ, SC/IM CPT-4 95869 Aug 12, 2015 Vital Signs Date/Time: Aug 12, 2015 Temperature 97.5 F Weight 340.9 lbs Height 66 in BMI 55.02 Index Blood Pressure Diastolic 120 mmHg Blood Pressure Systolic 160 mmHg Cardiac Monitoring Heart Rate 80 bpm Results No Known Results Summary Purpose eClinicalWorks Submission
--- OUTSIDE RECORDS SUMMARY | 2017-05-04 16:38 | XMS REPORT ---
Author GIORGIO Nick Organization eClinicalWorks Address Unknown Phone Unavailable Care Team Providers Care Rack Pusher Name Role Phone GIORGIO PEARSON CP Unavailable Allergies No Known Allergies Problems Problem Type Condition Code Onset Dates Condition Status Problem Abdominal pain, unspecified site 789.00 Active Problem Shortness of breath 786.05 Active Problem Acute bronchitis 466.0 Active Problem Sleep apnea 780.57 Active Problem Calculus of kidney 592.0 Active Problem Cellulitis 682.9 Active Problem HTN (hypertension) I10 Active [...] Start Date End Date Status Dosage Victoza [facility] [address]-76 18 MG/3ML Subcutaneous Once a day Aug 16, 2015 Aug 10, 2016 1.8 Actos [facility] [address]-16 30 MG Orally Once a day May 02, 2015 1 tablet Pen [place] [facility] [address]-22 31G X 6 MM Once a day Aug 16, 2015 as directed Results No Known Results Summary Purpose eClinicalWorks Submission
--- OUTSIDE RECORDS SUMMARY | 2017-05-04 16:38 | XMS REPORT ---
Author GIORGIO Nick [facility] eClinicalWorks Address Unknown Phone Unavailable Care Team Providers Care Lead Military Analyst Name Role Phone GIORGIO PEARSON CP Unavailable Allergies, Adverse Reactions, Alerts Substance Reaction Event Type Lisinopril Info Not Available Drug Allergy Problems Problem Type Condition ICD-9 Code Onset Dates Condition Status Assessment Sleep apnea 780.57 Active Problem Oral aphthae 528.2 Active Assessment Chronic pain 338.29 Active Problem Radial styloid tenosynovitis 727.04 Active Assessment Hypertension 401.9 Active Problem Screening examination for pulmonary tuberculosis V74.1 Active Problem Acute bronchitis 466.0 Active Problem Abdominal pain, unspecified site 789.00 Active Problem Cellulitis 682.9 Active Problem Chronic pain 338.29 Active Assessment Diabetes mellitus without mention of complication, type II or unspecified type, not stated as uncontrolled 250.00 Active Assessment Lumbago 724.2 Active Problem Sleep apnea 780.57 Active Assessment Swelling, mass, or lump in chest 786.6 Active Problem Encounter for long-term (current) use [...] V70.5 Active Problem Lumbago 724.2 Active Problem Diabetes mellitus without mention of complication, type II or unspecified type, not stated as uncontrolled 250.00 Active Medications Medication Code System Code Instructions Start Date End Date Status Dosage Metoprolol Succinate ER [facility] [address]-76 100 MG 1 TAB orally 2 times a day November 20, 2013 1 tab bid Victoza [facility] [address]-32 18 MG/3ML Subcutaneous Once a day Jul 31, 2015 0.2 ml metformin NDC 0 500 mg 2 times a day Aug 13, 2014 October 29, 2015 take 1 tablet by Oral route 2 times per day with the evening meal losartan NDC 0 50 mg Once a day Aug 13, 2014 Aug 30, 2015 take 1 tablet (50 mg) by oral route once daily Neurontin [facility] [address]-95 100 MG Orally Twice a day Jul 10, 2014 1 capsule by Oral route 3 times per day PRN for pain Actos [facility] [address]-43 30 MG Orally Once a day May 02, 2015 1 tablet ProAir HFA [facility] [address]-18 90 mcg/actuation Jul 10, 2014 inhale 2-4 puffs by Inhalation route every 4 hours as needed PRN shortness of breath/ cough Flomax [facility] [address]-16 0.4 mg November 05, 2014 1 capsule by Oral route 1 time per day Hydrocodone-Acetaminophen [facility] [address]-32 7.5-325 MG Orally every 6 hrs Jun 01, 2015 1 tablet as needed Procedures Procedure Coding System Code Date COMPLETE CBC W/AUTO DIFF WBC CPT-4 10662 May 02, 2015 COMPREHEN METABOLIC PANEL CPT-4 79415 May 02, 2015 GLYCATED HEMOGLOBIN TEST CPT-4 70571 May 02, 2015 VENIPUNCT, ROUTINE* CPT-4 93938 May 02, 2015 LIPID PANEL CPT-4 24552 May 02, 2015 Office Visit, Est Pt., Level 4 CPT-4 84469 May 02, 2015 Vital Signs Date/Time: May 02, 2015 Temperature 98.2 F Weight 347.5 lbs Height 66 in BMI 56.08 Index Blood Pressure Diastolic 98 mmHg Blood Pressure Systolic 146 mmHg Cardiac Monitoring Heart Rate 72 bpm Results Name Result Date Reference Range Unit Abnormality Flag A1C (IN HOUSE) CBC Summary Purpose eClinicalWorks Submission
--- OUTSIDE RECORDS SUMMARY | 2017-05-04 16:39 | XMS REPORT ---
Author GIORGIO Nick [facility] eClinicalWorks Address Unknown Phone Unavailable Care Team Providers Care Machinist Brake Name Role Phone GIORGIO PEARSON CP Unavailable Allergies, Adverse Reactions, Alerts Substance Reaction Event Type Lisinopril Info Not Available Drug Allergy Problems Problem Type Condition Code Onset Dates Condition Status Problem Screening examination for pulmonary tuberculosis V74.1 Active Problem Acute bronchitis 466.0 Active Problem Abdominal pain, unspecified site 789.00 Active Problem Cellulitis 682.9 Active Assessment Acute sinusitis, unspecified 461.9 Active Problem Chronic pain 338.29 Active Problem [...] Problem Radial styloid tenosynovitis 727.04 Active Medications Medication Code System Code Instructions Start Date End Date Status Dosage Levaquin [facility] [address]-07 500 MG Orally Once a day May 31, 2015 Jun 10, 2015 1 tablet Flomax [facility] [address]-37 0.4 mg November 05, 2014 1 capsule by Oral route 1 time per day Pravastatin Sodium [facility] [address]-34 20 MG Orally Once a day May 03, 2015 1 tablet Victoza [facility] [address]-07 18 MG/3ML Subcutaneous Once a day Jul 31, 2015 0.2 ml Hydrocodone-Acetaminophen [facility] [address]-23 7.5-325 MG Orally every 6 hrs Jun 01, 2015 1 tablet as needed losartan NDC 0 50 mg Once a day Aug 13, 2014 Aug 30, 2015 take 1 tablet (50 mg) by oral route once daily Neurontin [facility] [address]-09 100 MG Orally Twice a day Jul 10, 2014 1 capsule by Oral route 3 times per day PRN for pain Actos [facility] [address]-69 30 MG Orally Once a day May 02, 2015 1 tablet ProAir HFA [facility] [address]-83 90 mcg/actuation Jul 10, 2014 inhale 2-4 puffs by Inhalation route every 4 hours as needed PRN shortness of breath/ cough metformin [place] 0 500 mg 2 times a day Aug 13, 2014 October 29, 2015 take 1 tablet by Oral route 2 times per day with the evening meal Mucinex [facility] [address]-03 600 MG Orally every 12 hrs May 28, 2015 Jun 07, 2015 1 tablet as needed Metoprolol Succinate ER [facility] [address]-63 100 MG 1 TAB orally 2 times a day November 20, 2013 1 tab bid Procedures Procedure Coding System Code Date THER/PROPH/DIAG INJ, SC/IM CPT-4 15988 May 31, 2015 Office Visit, Est Pt., Level 3 CPT-4 49622 May 31, 2015 SOLUMEDROL (UP TO 125 MG) CPT-4 J2930 May 31, 2015 Vital Signs Date/Time: May 31, 2015 Temperature 98.3 F Weight 343 lbs Height 66 in BMI 55.36 Index Blood Pressure Diastolic 96 mmHg Blood Pressure Systolic 130 mmHg Cardiac Monitoring Heart Rate 72 bpm Results No Known Results Summary Purpose eClinicalWorks Submission
--- OUTSIDE RECORDS SUMMARY | 2017-05-04 16:39 | XMS REPORT ---
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 Problem Chronic pain syndrome G89.4 Active Problem History of kidney stones Z87.442 Active Problem HTN (hypertension) I10 Active Problem Obesity E66.9 Active Problem Sleep apnea G47.30 Active Assessment Chronic pain syndrome G89.4 Active Assessment History of kidney stones Z87.442 Active Assessment Sleep apnea G47.30 Active Assessment Obesity E66.9 Active Medications Medication Code System Code Instructions Start Date End Date Status Dosage Metoprolol Succinate ER [facility] [address]-21 100 MG 1 TAB orally 2 times a day November 20, 2013 1 tab bid Silvadene [facility] [address]-21 1 % Externally Once a day Aug 19, 2015 1 application to affected area Neurontin [facility] 16730320586 100 MG TAKE ONE CAPSULE BY MOUTH THREE TIMES DAILY NEEDED FOR PAIN Hydrocodone-Acetaminophen [facility] [address]-26 10-325 MG Orally every 6 hrs Aug 12, 2015 1 tablet as needed Actos [facility] [address]-78 45 MG Orally Once a day May 02, 2015 1 tablet Flomax [facility] [address]-03 0.4 MG November 05, 2014 1 capsule by Oral route 1 time per day Pen [place] [facility] [address]-50 31G X 6 MM Once a day Aug 16, 2015 as directed Insulin Detemir [facility] [address]-44 100 UNIT/ML Subcutaneous Once a day February 27, 2016 Inject 20 u ProAir HFA [facility] [address]-82 90 mcg/actuation Jul 10, 2014 inhale 2-4 puffs by Inhalation route every 4 hours as needed PRN shortness of breath/ cough Pravastatin Sodium [facility] [address]-73 20 MG Orally Once a day May 03, 2015 1 tablet Victoza [facility] [address]-38 18 MG/3ML Subcutaneous Once a day Aug 16, 2015 Aug 10, 2016 1.8 Metformin HCl [facility] [address]-14 500 MG Orally Twice a day 2 tablet with meals Procedures Procedure Coding System Code Date Office Visit, Est Pt., Level 4 CPT-4 39056 February 27, 2016 GLYCATED HEMOGLOBIN TEST CPT-4 45952 February 27, 2016 Vital Signs Date/Time: February 27, 2016 Cardiac Monitoring Heart Rate 76 bpm Weight 344.1 lbs Height 66 in Blood Pressure Diastolic 84 mmHg Blood Pressure Systolic 134 mmHg Results No Known Results Summary Purpose eClinicalWorks Submission
--- OUTSIDE RECORDS SUMMARY | 2017-05-04 16:39 | XMS REPORT ---
Author GIORGIO Nick [facility] eClinicalWorks Address Unknown Phone Unavailable Care Team Providers Care Garnishment Specialist Name Role Phone GIORGIO PEARSON CP Unavailable [...] Start Date End Date Status Dosage Neurontin [facility] [address]-22 100 MG Orally Twice a day Jul 10, 2014 1 capsule by Oral route 3 times per day PRN for pain Hydrocodone-Acetaminophen [facility] [address]-50 10-325 MG Orally every 6 hrs Aug 12, 2015 1 tablet as needed Flomax [facility] [address]-00 0.4 mg November 05, 2014 1 capsule by Oral route 1 time per day Pravastatin Sodium [facility] [address]-70 20 MG Orally Once a day May 03, 2015 1 tablet Actos [facility] [address]-42 30 MG Orally Once a day May 02, 2015 1 tablet losartan [facility] 0 50 mg Once a day Aug 13, 2014 Aug 30, 2015 take 1 tablet (50 mg) by oral route once daily Metformin HCl [facility] [address]-51 1000 MG Orally Twice a day Jun 11, 2015 1 tablet with meals Metoprolol Succinate ER [facility] [address]-48 100 MG 1 TAB orally 2 times a day November 20, 2013 1 tab bid ProAir HFA [facility] [address]-57 90 mcg/actuation Jul 10, 2014 inhale 2-4 puffs by Inhalation route every 4 hours as needed PRN shortness of breath/ cough Sulfamethoxazole-Trimethoprim [facility] [address]-47 800-160 MG Orally Twice a day Aug 12, 2015 Aug 22, 2015 1 tablet Procedures Procedure Coding System Code Date THER/PROPH/DIAG INJ, SC/IM CPT-4 18989 Aug 14, 2015 Office Visit, Est Pt., Level 3 CPT-4 05978 Aug 14, 2015 ROCEPHIN 1 GM (IM) CPT-4 J0696 Aug 14, 2015 Vital Signs Date/Time: Aug 14, 2015 Temperature 98.4 F Weight 343.2 lbs Height 66 in BMI 55.39 Index Blood Pressure Diastolic 75 mmHg Blood Pressure Systolic 102 mmHg Cardiac Monitoring Heart Rate 72 bpm Results No Known Results Summary Purpose eClinicalWorks Submission
--- OUTSIDE RECORDS SUMMARY | 2017-05-04 16:39 | XMS REPORT ---
Author Author GIORGIO PEARSON Organization eClinicalWorks Address Unknown Phone Unavailable Care Team Providers Care Senior Technologist Name Role Phone GIORGIO PEARSON CP Unavailable [...]
--- OUTSIDE RECORDS SUMMARY | 2017-05-04 16:39 | XMS REPORT ---
Author GIORGIO Nick Organization eClinicalWorks Address Unknown Phone Unavailable Care Team Providers Care Plastic Surgeon Name Role Phone GIORGIO PEARSON CP Unavailable [...] Date End Date Status Dosage Insulin Detemir [facility] [address]-31 100 UNIT/ML Subcutaneous March 02, 2016 25 units nightly Results No Known Results Summary Purpose eClinicalWorks Submission
--- OUTSIDE RECORDS SUMMARY | 2017-05-04 16:39 | XMS REPORT ---
Author GIORGIO Nick [facility] [place] eClinicalWorks Address Unknown Phone Unavailable Care Team Providers Care Tape Recorder Repairer Name Role Phone GIORGIO PEARSON CP Unavailable Allergies, Adverse Reactions, Alerts Substance Reaction Event Type Lisinopril Info Not Available Drug Allergy Problems Problem Type Condition Code Onset Dates Condition Status Problem Screening examination for pulmonary tuberculosis V74.1 Active Problem Acute bronchitis 466.0 Active Problem Abdominal pain, unspecified site 789.00 Active Problem Cellulitis 682.9 Active Assessment Sinusitis J32.9 Active Problem Chronic pain 338.29 Active Assessment Cough R05 Active Problem Sleep apnea 780.57 Active Problem [...] Instructions Start Date End Date Status Dosage Azithromycin [facility] [address]-74 250 MG Orally Once a day May 28, 2015 Jun 02, 2015 2 tablets on the first day, then 1 tablet daily for 4 days Mucinex [facility] [address]-49 600 MG Orally every 12 hrs May 28, 2015 Jun 07, 2015 1 tablet as needed ProAir HFA [facility] [address]-00 90 mcg/actuation Jul 10, 2014 inhale 2-4 puffs by Inhalation route every 4 hours as needed PRN shortness of breath/ cough Flomax [facility] [address]-66 0.4 mg November 05, 2014 1 capsule by Oral route 1 time per day Victoza [facility] [address]-34 18 MG/3ML Subcutaneous Once a day Jul 31, 2015 0.2 ml Hydrocodone-Acetaminophen [facility] [address]-96 7.5-325 MG Orally every 6 hrs Jun 01, 2015 1 tablet as needed Metoprolol Succinate ER [facility] [address]-02 100 MG 1 TAB orally 2 times a day November 20, 2013 1 tab bid Actos [facility] [address]-67 30 MG Orally Once a day May 02, 2015 1 tablet Pravastatin Sodium [facility] [address]-07 20 MG Orally Once a day May 03, 2015 1 tablet Neurontin [facility] [address]-72 100 MG Orally Twice a day Jul 10, 2014 1 capsule by Oral route 3 times per day PRN for pain metformin NDC 0 500 mg 2 times [...] Office Visit, Est Pt., Level 3 CPT-4 04227 May 28, 2015 Vital Signs Date/Time: May 28, 2015 Temperature 97.8 F Weight 343.4 lbs Height 66 in BMI 55.42 Index Blood Pressure Diastolic 74 mmHg Blood Pressure Systolic 138 mmHg Cardiac Monitoring Heart Rate 74 bpm Results No Known Results Summary Purpose eClinicalWorks Submission
--- OUTSIDE RECORDS SUMMARY | 2017-05-04 16:39 | XMS REPORT ---
Author Author GIORGIO PEARSON Organization eClinicalWorks Address Unknown Phone Unavailable Care Team Providers Care Bad Credit Collector Name Role Phone GIORGIO PEARSON CP Unavailable [...]
--- OUTSIDE RECORDS SUMMARY | 2017-05-04 16:39 | XMS REPORT ---
Author GIORGIO Nick [facility] eClinicalWorks Address Unknown Phone Unavailable Care Team Providers Care Auto Claim Representative Name Role Phone GIORGIO PEARSON CP Unavailable [...] Active Problem Cellulitis 682.9 Active Assessment Cellulitis 682.9 Active Problem HTN (hypertension) I10 [...] Start Date End Date Status Dosage Neurontin [facility] [address]-57 100 MG Orally Twice a day Jul 10, 2014 1 capsule by Oral route 3 times per day PRN for pain Hydrocodone-Acetaminophen [facility] [address]-62 10-325 MG Orally every 6 hrs Aug 12, 2015 1 tablet as needed Sulfamethoxazole-Trimethoprim [facility] [address]-95 800-160 MG Orally Twice a day Aug 12, 2015 Aug 22, 2015 1 tablet Flomax [facility] [address]-06 0.4 mg November 05, 2014 1 capsule by Oral route 1 time per day losartan NDC 0 50 mg Once a day Aug 13, 2014 Aug 30, 2015 take 1 tablet (50 mg) by oral route once daily Actos [facility] [address]-79 30 MG Orally Once a day May 02, 2015 1 tablet Pravastatin Sodium [facility] [address]-97 20 MG Orally Once a day May 03, 2015 1 tablet Metformin HCl [facility] [address]-68 1000 MG Orally Twice a day Jun 11, 2015 1 tablet with meals ProAir HFA [facility] [address]-51 90 mcg/actuation Jul 10, 2014 inhale 2-4 puffs by Inhalation route every 4 hours as needed PRN shortness of breath/ cough Metoprolol Succinate ER [facility] [address]-96 100 MG 1 TAB orally 2 times a day November 20, 2013 1 tab bid Procedures Procedure Coding System Code Date ROCEPHIN 1 GM (IM) CPT-4 J0696 Aug 15, 2015 THER/PROPH/DIAG INJ, SC/IM CPT-4 87700 Aug 15, 2015 Office Visit, Est Pt., Level 3 CPT-4 50264 Aug 15, 2015 Vital Signs Date/Time: Aug 15, 2015 Temperature 98.1 F Weight 342.2 lbs Height 66 in BMI 55.23 Index Blood Pressure Diastolic 82 mmHg Blood Pressure Systolic 140 mmHg Cardiac Monitoring Heart Rate 72 bpm Results No Known Results Summary Purpose eClinicalWorks Submission
--- OUTSIDE RECORDS SUMMARY | 2017-05-04 16:40 | XMS REPORT ---
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
--- OUTSIDE RECORDS SUMMARY | 2017-05-04 16:40 | XMS REPORT ---
Author Author GIORGIO PEARSON Organization 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 179748050 Problem Fibromyalgia M79.7 Active 322526398 Problem Chronic pain syndrome G89.4 Active 406912531 Problem Hyperlipidemia, unspecified hyperlipidemia type E78.5 Active 66744980 Problem Thyroid disorder E07.9 Active 89776185 Problem Hypercholesterolemia E78.00 Active 34792772 Problem Pedal edema R60.0 Active 671860490 Problem Cough R05 Active 02900011 Problem Central sleep apnea due to medical condition G47.37 Active 92890813 Problem Sleep apnea G47.30 Active 91904846 Problem Obesity E66.9 Active 496247278 Problem History of kidney stones Z87.442 Active 512044475 Problem HTN (hypertension) I10 Active 34531310 Problem Diabetes E11.9 Active 203432519 ALLERGIES Substance Reaction Event Type Date Status Lisinopril dizziness Drug Allergy Aug, Active SOCIAL HISTORY No smoking Hx information available PLAN OF CARE Activity Details Follow Up 3 Months, prn Reason:chm dm and htn with pvd VITAL SIGNS Height 66 in 2016-08-19 Weight 314 lbs 2016-08-19 Temperature 98.3 degrees Fahrenheit 2016-08-19 Heart Rate 80 bpm 2016-08-19 Respiratory Rate 18 2016-08-19 BMI 50.68 kg/m2 2016-08-19 MEDICATIONS Medication Instructions Dosage Frequency Start Date End Date Duration Status Neurontin 100 MG Orally Three times a day 1 capsule 8h 90 days Active Hydrochlorothiazide 50 mg Orally Once a day 1 tablet 24h May, 90 days Active Pen [place] 31G X 6 MM as directed 24h Aug, Active Losartan Potassium 50 mg Orally Once a day 1 tablet 24h 90 days Active Flomax 0.4 MG 1 capsule by Oral route 1 time per day Oct, Active Metformin HCl 500 MG Orally Twice a day 2 tablet with meals 12h 30 days Active Metoprolol Succinate ER 100 MG Orally 2 times a day 1 tab bid 12h Nov, 90 days Active Victoza 18 MG/3ML Subcutaneous Once a day 1.8 24h Active Insulin Detemir 100 UNIT/ML Subcutaneous once a day 25 units nightly 24h Feb, Active Actos 45 MG Orally Once a day 1 tablet 24h Apr, Active Pravastatin Sodium 20 mg Orally Once a day 1 tablet 24h Apr, 90 days Active ProAir HFA 90 mcg/actuation inhale 2-4 puffs by Inhalation route every 4 hours as needed PRN shortness of breath/cough Jul, Active Silvadene 1 % Externally Once a day 1 application to affected area 24h Aug, Active RESULTS No Results PROCEDURES Procedure Date Ordered Related Diagnosis Body Site Office Visit, Est Pt., Level 4 Aug 19, 2016 IMMUNIZATIONS No Known Immunizations
--- OUTSIDE RECORDS SUMMARY | 2017-05-04 16:40 | XMS REPORT ---
Author GIORGIO Nick [facility] eClinicalWorks Address Unknown Phone Unavailable Care Team Providers Care Spring Fitter Helper Name Role Phone GIORGIO PEARSON CP Unavailable [...] Start Date End Date Status Dosage Neurontin [facility] [address]-91 100 MG Orally Twice a day Jul 10, 2014 1 capsule by Oral route 3 times per day PRN for pain Actos [facility] [address]-13 30 MG Orally Once a day May 02, 2015 1 tablet Pravastatin Sodium [facility] [address]-88 20 MG Orally Once a day May 03, 2015 1 tablet ProAir HFA [facility] [address]-02 90 mcg/actuation Jul 10, 2014 inhale 2-4 puffs by Inhalation route every 4 hours as needed PRN shortness of breath/ cough losartan NDC 0 50 mg Once a day Aug 13, 2014 Aug 30, 2015 take 1 tablet (50 mg) by oral route once daily Metoprolol Succinate ER [facility] [address]-43 100 MG 1 TAB orally 2 times a day November 20, 2013 1 tab bid Metformin HCl [facility] [address]-94 1000 MG Orally Twice a day Jun 11, 2015 1 tablet with meals Sulfamethoxazole-Trimethoprim [facility] [address]-70 800-160 MG Orally Twice a day Aug 12, 2015 Aug 22, 2015 1 tablet Flomax [facility] [address]-86 0.4 mg November 05, 2014 1 capsule by Oral route 1 time per day Hydrocodone-Acetaminophen [facility] [address]-72 10-325 MG Orally every 6 hrs Aug 12, 2015 1 tablet as needed Procedures Procedure Coding System Code Date THER/PROPH/DIAG INJ, SC/IM CPT-4 34309 Aug 13, 2015 Office Visit, Est Pt., Level 3 CPT-4 92914 Aug 13, 2015 ROCEPHIN 1 GM (IM) CPT-4 J0696 Aug 13, 2015 Vital Signs Date/Time: Aug 13, 2015 Temperature 97.7 F Weight 342.7 lbs Height 66 in BMI 55.31 Index Blood Pressure Diastolic 100 mmHg Blood Pressure Systolic 142 mmHg Cardiac Monitoring Heart Rate 72 bpm Results No Known Results Summary Purpose eClinicalWorks Submission
--- OUTSIDE RECORDS SUMMARY | 2017-05-04 16:40 | XMS REPORT ---
Author GIORGIO Nick Organization eClinicalWorks Address Unknown Phone Unavailable Care Team Providers Care Application Processor Name Role Phone GIORGIO PEARSON Unavailable Allergies [...]
--- OUTSIDE RECORDS SUMMARY | 2017-05-04 16:40 | XMS REPORT ---
Author GIORGIO Nick Organization eClinicalWorks Address Unknown Phone Unavailable Care Team Providers Care Fisher Trammel Net Name Role Phone GIORGIO PEARSON CP Unavailable [...] Date End Date Status Dosage Insulin Detemir [facility] [address]-51 100 UNIT/ML Subcutaneous once a day March 02, 2016 25 units nightly Results No Known Results Summary Purpose eClinicalWorks Submission
--- OUTSIDE RECORDS SUMMARY | 2017-05-04 16:40 | XMS REPORT ---
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 Problem Chronic pain syndrome G89.4 Active Problem History of kidney stones Z87.442 Active Problem HTN (hypertension) I10 Active Problem Obesity E66.9 Active Problem Sleep apnea G47.30 Active Assessment Urinary retention R33.9 Active Assessment HTN (hypertension) I10 Active Assessment Sleep apnea G47.30 Active Medications Medication Code System Code Instructions Start Date End Date Status Dosage Neurontin [facility] 58375663522 100 MG TAKE ONE CAPSULE BY MOUTH THREE TIMES DAILY NEEDED FOR PAIN Pravastatin Sodium [facility] [address]-07 20 MG Orally Once a day May 03, 2015 1 tablet Metoprolol Succinate ER [facility] [address]-54 100 MG 1 TAB orally 2 times a day November 20, 2013 1 tab bid ProAir HFA [facility] [address]-09 90 mcg/actuation Jul 10, 2014 inhale 2-4 puffs by Inhalation route every 4 hours as needed PRN shortness of breath/ cough Flomax [facility] [address]-35 0.4 MG November 05, 2014 1 capsule by Oral route 1 time per day Pen [place] [facility] [address]-99 31G X 6 MM Once a day Aug 16, 2015 as directed Victoza [facility] [address]-40 18 MG/3ML Subcutaneous Once a day Aug 16, 2015 Aug 10, 2016 1.8 Invokana [facility] [address]-57 300 MG Orally Once a day December 06, 2015 1 tablet Hydrocodone-Acetaminophen [facility] [address]-51 10-325 MG Orally every 6 hrs Aug 12, 2015 1 tablet as needed Silvadene [facility] [address]-00 1 % Externally Once a day Aug 19, 2015 1 application to affected area Actkarla [facility] [address]-84 45 MG Orally Once a day May 02, 2015 1 tablet Insulin Detemir [facility] [address]-73 100 UNIT/ML Subcutaneous once a day March 02, 2016 25 units nightly Metformin HCl [facility] [address]-89 500 MG Orally Twice a day 2 tablet with meals Procedures Procedure Coding System Code Date Office Visit, Est Pt., Level 4 CPT-4 14108 Mar 27, 2016 Vital Signs Date/Time: Mar 27, 2016 Cardiac Monitoring Heart Rate 80 bpm Weight 329.9 lbs Height 66 in BMI 53.24 Index Blood Pressure Diastolic 88 mmHg Blood Pressure Systolic 118 mmHg Results No Known Results Summary Purpose eClinicalWorks Submission
--- OUTSIDE RECORDS SUMMARY | 2017-05-04 16:41 | XMS REPORT ---
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 Assessment History of kidney stones Z87.442 Active Assessment Diabetes E11.9 Active Medications Medication Code System Code Instructions Start Date End Date Status Dosage Hydrocodone-Acetaminophen [facility] [address]-94 10-325 MG Orally every 6 hrs Aug 12, 2015 1 tablet as needed Neurontin [facility] 36122102750 100 MG TAKE ONE CAPSULE BY MOUTH THREE TIMES DAILY NEEDED FOR PAIN ProAir HFA [facility] [address]-98 90 mcg/actuation Jul 10, 2014 inhale 2-4 puffs by Inhalation route every 4 hours as needed PRN shortness of breath/ cough Invokana [facility] [address]-37 300 MG Orally Once a day December 06, 2015 1 tablet Pravastatin Sodium [facility] [address]-22 20 MG Orally Once a day May 03, 2015 1 tablet Flomax [facility] [address]-90 0.4 MG November 05, 2014 1 capsule by Oral route 1 time per day Hydrochlorothiazide [facility] [address]-44 50 mg Orally Once a day May 29, 2016 1 tablet Victoza [facility] [address]-94 18 MG/3ML Subcutaneous Once a day Aug 16, 2015 Aug 10, 2016 1.8 Metformin HCl [facility] [address]-88 500 MG Orally Twice a day 2 tablet with meals Actos [facility] [address]-03 45 MG Orally Once a day May 02, 2015 1 tablet Insulin Detemir [facility] [address]-26 100 UNIT/ML Subcutaneous once a day March 02, 2016 25 units nightly Metoprolol Succinate ER [facility] [address]-03 100 MG 1 TAB orally 2 times a day November 20, 2013 1 tab bid Silvadene [facility] [address]-15 1 % Externally Once a day Aug 19, 2015 1 application to affected area [place] [facility] [address]-02 31G X 6 MM Once a day Aug 16, 2015 as directed Procedures Procedure Coding System Code Date Office Visit, Est Pt., Level 4 CPT-4 03841 May 29, 2016 GLYCATED HEMOGLOBIN TEST CPT-4 01802 May 29, 2016 Vital Signs Date/Time: May 29, 2016 Cardiac Monitoring Heart Rate 90 bpm Weight 317.0 lbs Height 66 in BMI 51.16 Index Blood Pressure Diastolic 92 mmHg Blood Pressure Systolic 119 mmHg Results Name Result Date Reference Range Unit Abnormality Flag A1C (IN HOUSE) ----A1C IN HOUSE 5.8 [id number] 4.3 - 5.6 % ----Previous A1c 10.3 [id number] ----Lot [id number] ----Exp date [id number] Summary Purpose eClinicalWorks Submission
--- OUTSIDE RECORDS SUMMARY | 2017-05-04 16:41 | XMS REPORT ---
Author GIORGIO Nick [facility] eClinicalWorks Address Unknown Phone Unavailable Care Team Providers Care Homeland Security Program Specialist Name Role Phone GIORGIO PEARSON CP [...] 592.0 Active Problem Cellulitis 682.9 Active Assessment Cutaneous abscess, unspecified L02.91 Active Problem HTN (hypertension) I10 Active Problem [...] Start Date End Date Status Dosage Victoza [facility][NOTE 3] [address]-81 18 MG/3ML Subcutaneous Once a day Aug 16, 2015 Aug 10, 2016 1.8 Flomax [facility][NOTE 3] [address]-90 0.4 mg November 05, 2014 1 capsule by Oral route 1 time per day Pravastatin Sodium [facility][NOTE 3] [address]-33 20 MG Orally Once a day May 03, 2015 1 tablet ProAir HFA [facility][NOTE 3] [address]-51 90 mcg/actuation Jul 10, 2014 inhale 2-4 puffs by Inhalation route every 4 hours as needed PRN shortness of breath/ cough Hydrocodone-Acetaminophen [facility][NOTE 3] [address]-66 10-325 MG Orally every 6 hrs Aug 12, 2015 1 tablet as needed Actos [facility][NOTE 3] [address]-10 30 MG Orally Once a day May 02, 2015 1 tablet Sulfamethoxazole-Trimethoprim [facility][NOTE 3] [address]-90 800-160 MG Orally Twice a day Aug 12, 2015 Aug 22, 2015 1 tablet Metoprolol Succinate ER [facility][NOTE 3] [address]-77 100 MG 1 TAB orally 2 times a day November 20, 2013 1 tab bid Metformin HCl [facility][NOTE 3] [address]-33 1000 MG Orally Twice a day Jun 11, 2015 1 tablet with meals Neurontin [facility][NOTE 3] [address]-78 100 MG Orally Twice a day Jul 10, 2014 1 capsule by Oral route 3 times per day PRN for pain Silvadene [facility][NOTE 3] [address]-08 1 % Externally Once a day Aug 19, 2015 1 application to affected area [place] [facility][NOTE 3] [address]-03 31G X 6 MM Once a day Aug 16, 2015 as directed losartan ND 0 50 mg Once a day Aug 13, 2014 Aug 30, 2015 take 1 tablet (50 mg) by oral route once daily Procedures Procedure Coding System Code Date ROCEPHIN 1 GM (IM) CPT-4 J0696 Aug 19, 2015 THER/PROPH/DIAG INJ, SC/IM CPT-4 00039 Aug 19, 2015 Office Visit, Est Pt., Level 3 CPT-4 44329 Aug 19, 2015 Vital Signs Date/Time: Aug 19, 2015 Temperature 98.9 F Weight 339.5 lbs Height 66 in BMI 54.79 Index Blood Pressure Diastolic 88 mmHg Blood Pressure Systolic 138 mmHg Cardiac Monitoring Heart Rate 78 bpm Results No Known Results Summary Purpose eClinicalWorks Submission
--- OUTSIDE RECORDS SUMMARY | 2017-05-04 16:41 | XMS REPORT ---
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 727960239 Problem Fibromyalgia M79.7 Active 867113558 Problem Chronic pain syndrome G89.4 Active 708909250 Problem Hyperlipidemia, unspecified hyperlipidemia type E78.5 Active 41381786 Problem Thyroid disorder E07.9 Active 62218783 Problem Hypercholesterolemia E78.00 Active 93823396 Problem Pedal edema R60.0 Active 211223279 Problem Cough R05 Active 63343692 Problem Central sleep apnea due to medical condition G47.37 Active 61288404 Problem Sleep apnea G47.30 Active 94967263 Problem Obesity E66.9 Active 841465689 Problem History of kidney stones Z87.442 Active 337355855 Problem HTN (hypertension) I10 Active 87362412 Problem Diabetes E11.9 Active 508756741 ALLERGIES Unknown Allergies SOCIAL HISTORY No smoking Hx information available PLAN OF CARE VITAL SIGNS MEDICATIONS Unknown Medications RESULTS Name Result Date Reference Range TSH 2016-09-04 TSH 0.578 0.450-4.500 CBC 2016-09-04 WBC 5.4 3.4-10.8 RBC 5.14 3.77-5.28 Hemoglobin 14.4 11.1-15.9 Hematocrit 45.2 34.0-46.6 MCV 88 79-97 MCH 28.0 26.6-33.0 MCHC 31.9 31.5-35.7 RDW 13.0 12.3-15.4 Platelets 290 150-379 Neutrophils 52 Lymphs 37 Monocytes 10 Eos 1 Basos 0 Neutrophils (Absolute) 2.8 1.4-7.0 Lymphs (Absolute) 2.0 0.7-3.1 Monocytes(Absolute) 0.6 0.1-0.9 Eos (Absolute) 0.0 0.0-0.4 Baso (Absolute) 0.0 0.0-0.2 Immature Granulocytes 0 Immature Grans (Abs) 0.0 0.0-0.1 LIPID PANEL 2016-09-04 Cholesterol, Total 206 100-199 Triglycerides 150 0-149 HDL Cholesterol 48 >39 VLDL Cholesterol Mickey 30 5-40 LDL Cholesterol Calc 128 0-99 Comment: CMP 2016-09-04 Glucose, Serum 108 65-99 BUN 20 6-24 Creatinine, Serum 0.85 0.57-1.00 eGFR If NonAfricn Am 79 >59 eGFR If Africn Am 91 >59 BUN/Creatinine Ratio 24 9-23 Sodium, Serum 142 134-144 Potassium, Serum 4.2 3.5-5.2 Chloride, Serum 99 96-106 Carbon Dioxide, Total 27 18-29 Calcium, Serum 10.0 8.7-10.2 Protein, Total, Serum 7.7 6.0-8.5 Albumin, Serum 4.6 3.5-5.5 Globulin, Total 3.1 1.5-4.5 A/G Ratio 1.5 1.1-2.5 Bilirubin, Total 0.4 0.0-1.2 Alkaline Phosphatase, S 105 39-117 AST (SGOT) 15 0-40 ALT (SGPT) 15 0-32 PROCEDURES Procedure Date Ordered Related Diagnosis Body Site VENIPUNCT, ROUTINE* Sep 04, 2016 IMMUNIZATIONS No Known Immunizations
--- OUTSIDE RECORDS SUMMARY | 2017-05-04 16:41 | XMS REPORT ---
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 Problem Obesity E66.9 Active Problem Diabetes E11.9 Active Problem HTN (hypertension) I10 Active Problem Sleep apnea 780.57 Active Problem Sleep apnea G47.30 Active Problem History of kidney stones Z87.442 Active Medications Medication Code System Code Instructions Start Date End Date Status Dosage Hydrocodone-Acetaminophen [facility] [address]-05 10-325 MG Orally every 6 hrs Aug 12, 2015 1 tablet as needed losartan [facility] 0 50 mg Once a day Aug 13, 2014 Aug 30, 2015 take 1 tablet (50 mg) by oral route once daily Metformin HCl [facility] [address]-81 1000 MG Orally Twice a day Jun 11, 2015 1 tablet with meals Pravastatin Sodium [facility] [address]-37 20 MG Orally Once a day May 03, 2015 1 tablet Silvadene [facility] [address]-05 1 % Externally Once a day Aug 19, 2015 1 application to affected area Neurontin [facility] [address]-63 100 MG Orally Twice a day Jul 10, 2014 1 capsule by Oral route 3 times per day PRN for pain Victoza [facility] [address]-54 18 MG/3ML Subcutaneous Once a day Aug 16, 2015 Aug 10, 2016 1.8 Metoprolol Succinate ER [facility] [address]-45 100 MG 1 TAB orally 2 times a day November 20, 2013 1 tab bid Flomax [facility] [address]-73 0.4 mg November 05, 2014 1 capsule by Oral route 1 time per day ProAir HFA [facility] [address]-21 90 mcg/actuation Jul 10, 2014 inhale 2-4 puffs by Inhalation route every 4 hours as needed PRN shortness of breath/ cough Actos [facility] [address]-42 30 MG Orally Once a day May 02, 2015 1 tablet [place] [facility] [address]-99 31G X 6 MM Once a day Aug 16, 2015 as directed Procedures Procedure Coding System Code Date MICROALBUMIN, SEMIQUANT CPT-4 56464 Aug 27, 2015 Office Visit, Est Pt., Level 4 CPT-4 01568 Aug 27, 2015 GLYCATED HEMOGLOBIN TEST CPT-4 76469 Aug 27, 2015 Vital Signs Date/Time: Aug 27, 2015 Temperature 98.1 F Weight 344 lbs Height 66 in BMI 55.52 Index Blood Pressure Diastolic 90 mmHg Blood Pressure Systolic 130 mmHg Cardiac Monitoring Heart Rate 68 bpm Results Name Result Date Reference Range Unit Abnormality Flag A1C (IN HOUSE) ----A1C IN HOUSE 9.2% [id number] 4.3 - 5.6 % ----Previous A1c 9.3% [id number] ----Lot [id number] ----Exp date 20150827 MICROALBUMIN, URINE (IN HOUSE) ----CRE 200 mg/dL [id number] ----ALB 30 mg/L [id number] ----Control + [id number] ----A:C (IN HOUSE) <30 mg/g [id number] ----Clarity clear [id number] ----Color yellow [id number] ----Lot # [id number] ----Exp date 20150827 ----MICROALBUMIN Normal [id number] Summary Purpose eClinicalWorks Submission
--- OUTSIDE RECORDS SUMMARY | 2017-05-04 16:41 | XMS REPORT ---
Author GIORGIO Nick [facility] eClinicalWorks Address Unknown Phone Unavailable Care Team Providers Care Instrument Maker Name Role Phone GIORGIO PEARSON CP Unavailable Allergies, Adverse Reactions, Alerts Substance Reaction Event Type Lisinopril Info Not Available Drug Allergy Problems Problem Type Condition Code Onset Dates Condition Status Assessment Hypercholesterolemia E78.0 Active Assessment Calculus of kidney 592.0 Active Problem Oral aphthae 528.2 Active Assessment Sleep apnea 780.57 Active Problem Radial styloid tenosynovitis 727.04 Active Assessment Chronic pain 338.29 Active Problem Screening examination for pulmonary tuberculosis V74.1 Active Problem Acute bronchitis 466.0 Active Problem Abdominal pain, unspecified site 789.00 Active Problem Cellulitis 682.9 Active Problem Chronic pain 338.29 Active Assessment Diabetes mellitus without mention of complication, type II or unspecified type, not stated as uncontrolled 250.00 Active Assessment Lumbago 724.2 Active Problem Sleep apnea 780.57 Active Assessment Hypertension 401.9 Active Problem Encounter for long-term (current) use [...] Instructions Start Date End Date Status Dosage Flomax NDC [address]-51 0.4 mg November 05, 2014 1 capsule by Oral route 1 time per day losartan NDC 0 50 mg Once a day Aug 13, 2014 Aug 30, 2015 take 1 tablet (50 mg) by oral route once daily Victoza [facility] [address]-56 18 MG/3ML Subcutaneous Once a day Jul 31, 2015 0.2 ml Neurontin [facility] [address]-71 100 MG Orally Twice a day Jul 10, 2014 1 capsule by Oral route 3 times per day PRN for pain ProAir HFA [facility] [address]-91 90 mcg/actuation Jul 10, 2014 inhale 2-4 puffs by Inhalation route every 4 hours as needed PRN shortness of breath/ cough Metoprolol Succinate ER [facility] [address]-02 100 MG 1 TAB orally 2 times a day November 20, 2013 1 tab bid Actos [facility] [address]-46 30 MG Orally Once a day May 02, 2015 1 tablet Pravastatin Sodium [facility] [address]-16 20 MG Orally Once a day May 03, 2015 1 tablet Metformin HCl [facility] [address]-08 1000 MG Orally Twice a day Jun 11, 2015 1 tablet with meals Procedures Procedure Coding System Code Date Office Visit, Est Pt., Level 4 CPT-4 92164 Jun 11, 2015 Vital Signs Date/Time: Jun 11, 2015 Temperature 98.0 F Weight 340 lbs Height 66 in BMI 54.87 Index Blood Pressure Diastolic 86 mmHg Blood Pressure Systolic 128 mmHg Cardiac Monitoring Heart Rate 70 bpm Results No Known Results Summary Purpose eClinicalWorks Submission
--- OUTSIDE RECORDS SUMMARY | 2017-05-04 16:41 | XMS REPORT ---
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
[2017-05-04] MEDS ORDERED: NS IV 1000 ML 1,000 ML IV ONE (17:14)
[2017-05-04] MEDS ORDERED: KETOROLAC 30 MG/ML VIAL IVP STA (17:14)
[2017-05-04 17:21] LABS: BILIRUBIN,URINE NEGATIVE (NEGATIVE); KETONES,URINE NEGATIVE (NEGATIVE); LEUKOCYTE ESTERASE ,URINE 1+ (NEGATIVE); NITRITE,URINE NEGATIVE (NEGATIVE); PH,URINE 5 (5-9); PROTEIN,URINE 2+ (NEGATIVE); UROBILINOGEN,URINE NORMAL (NORMAL)
[2017-05-04 17:29] LABS: WBC,URINE 0-2 /HPF
--- NOTE | 2017-05-04 17:31 | ED GU-Female ---
General Chief Complaint: Back Problems Stated Complaint: LT SIDED ABDOMINAL PAIN Source: patient Exam Limitations: no limitations History of Present Illness Time seen by provider: 17:15 Initial Comments Here with report of left-sided abdominal pain and dysuria. States that this started on Wednesday 3 days ago and has been intermittent since. Yesterday was doing okay but started getting some chills. Today she's had chills and believes she may have had a fever as well as having some dysuria. Unable to urinate well. Reports nausea but no vomiting. Has decreased appetite due to pain and nausea. Has history of multiple kidney stones in the past. Timing/Duration: getting worse, intermittent Severity/Quality: moderate, aching Location: left flank Radiation: none Activities at Onset: none Modifying Factors: Improves With Analgesics, Worsens With Urinating Associated Symptoms: dysuria, fever/chills, nausea/vomiting, urinary frequency Allergies and Home Medications Allergies Coded Allergies: lisinopril (Verified Allergy, Unknown, 04/18/15) Home Medications Cephalexin 500 Mg Tablet, 500 MG PO BID, #14 Ref 0 Prescribed by: REX MEDRANO on 05/04/171813 Furosemide 80 Mg Tablet, 80 MG PO DAILY, (Reported) Hydrocodone/Acetaminophen 1 Each Tablet, 1 EACH PO Q6H PRN for PAIN, #16 Ref 0 Prescribed by: REX MEDRANO on 05/04/171813 Insulin Detemir 100 Unit/1 Ml Insuln.pen, SQ, (Reported) Liraglutide 0.6 Mg/0.1 Ml Pen.injctr, SQ, (Reported) Losartan Potassium 50 Mg Tablet, 50 MG PO DAILY, (Reported) Metoprolol Tartrate 100 Mg Tablet, 100 MG PO BID, (Reported) Pioglitazone HCl 30 Mg Tablet, 30 MG PO DAILY, (Reported) Potassium Chloride 10 Meq Capsule.er, 20 MEQ PO BID, (Reported) TAKES 2 (10MEQ) CAPSULES Pravastatin Sodium 20 Mg Tablet, 20 MG PO DAILY, (Reported) Constitutional: see HPI, chills, fever EENTM: no symptoms reported Respiratory: No cough, No short of breath Cardiovascular: No chest pain, No palpitations Gastrointestinal: abdominal pain, nausea, No vomiting Genitourinary: dysuria, hematuria, pain : No Musculoskeletal: no symptoms reported Skin: no symptoms reported Psychiatric/Neurological: No Symptoms Reported All Other Systemes Reviewed Negative Unless Noted: Yes Past Pzbvayp-Rypnqs-Cremiy Hx Patient Social History Alcohol Use: Denies Use Recreational Drug Use: No Drug of Choice: PAST HX Smoking Status: Never a Smoker 2nd Hand Smoke Exposure: No Recent Foreign Travel: No Contact w/Someone Who Travel: No Recent Hopitalizations: No Physical Abuse: No Sexual Abuse: No Seasonal Allergies Seasonal Allergies: No Surgeries History of Surgeries: Yes (FX WRIST, ) Surgeries: Section, Gallbladder, Hysterectomy Respiratory History of Respiratory Disorde: Yes Respiratory Disorders: Sleep Apnea Cardiovascular History of Cardiac Disorders: Yes Cardiac Disorders: Hypertension Neurological History of 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) 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 System Hx 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 Disorders: No Sexually Transmitted Disease: No HIV/AIDS: No Female 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 Disorders: Denies [employer]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 Genitourinary Genitourinary Disorders: Kidney Infection, Kidney Stones Gastrointestinal History of Gastrointestinal Di: No Musculoskeletal History of Musculoskeletal Dis: Yes Musculoskeletal Disorders: Back Injury Endocrine History of Endocrine Disorders: Yes Endocrine Disorders: Diabetes, Non-Insulin dep Cancer History of Cancer: No Psychosocial History of Psychiatric Problem: No Suicide Risk Score: 0 Integumentary History of Skin or Integumenta: No Blood Transfusions History of Blood Disorders: No Adverse Reaction to a Blood Tr: No Reviewed Nursing Assessment Reviewed/Agree w Nursing PMH: Yes Family Medical History Significant Family History: No Pertinent Family Hx Family Medial History: Cancer AUNT (1 OF BREAST CA 1 OF LUNG CA) Family history: Hypertension 03 MOTHER Physical Exam Vital Signs Vital Sign - Last 12Hours 05/04/17 17:11 Temp 98.7 Pulse 76 Resp 20 B/P (MAP) 192/105 Pulse Ox 96 O2 Delivery Room Air Capillary Refill : General Appearance: WD/WN, no apparent distress HEENT: PERRL/EOMI, pharynx normal Neck: full range of motion, supple Cardiovascular: regular rate, rhythm, no murmur Respiratory: lungs clear, normal breath sounds Gastrointestinal: non tender, soft Back: normal inspection, no vertebral tenderness, No CVA tenderness (R), CVA tenderness (L) Extremities: non-tender, normal inspection Neurologic/Psychiatric: alert, oriented x 3 Skin: normal color, warm/dry Progress/Results/Core Measures Results/Orders Lab Results Laboratory Tests Test 05/04/17 17:10 05/04/17 17:25 Range/Units Urine Color YELLOW Urine Clarity CLEAR Urine pH 5 5-9 Urine Specific [place] 1.025 H 1.016-1.022 Urine Protein 2+ H NEGATIVE Urine Glucose (UA) 4+ H NEGATIVE Urine Ketones NEGATIVE NEGATIVE Urine Nitrite NEGATIVE NEGATIVE Urine Bilirubin NEGATIVE NEGATIVE Urine Urobilinogen NORMAL NORMAL MG/DL Urine Leukocyte Esterase 1+ H NEGATIVE Urine RBC (Auto) 4+ H NEGATIVE Urine RBC 10-25 H /HPF Urine WBC 0-2 /HPF Urine Squamous Epithelial Cells 10-25 H /HPF Urine Crystals NONE /LPF Urine Bacteria TRACE /HPF Urine Casts NONE /LPF Urine Mucus NEGATIVE /LPF Urine Culture Indicated NO White Blood Count 8.8 4.3-11.0 10^3/uL Red Blood Count 5.07 4.35-5.85 10^6/uL Hemoglobin 14.2 11.5-16.0 G/DL Hematocrit 43 35-52 % Mean Corpuscular Volume 85 80-99 FL Mean Corpuscular Hemoglobin 28 25-34 PG Mean Corpuscular Hemoglobin Concent 33 32-36 G/DL Red Cell Distribution Width 12.5 10.0-14.5 % Platelet Count 228 130-400 10^3/uL Mean Platelet Volume 10.0 7.4-10.4 FL Neutrophils (%) (Auto) 75 42-75 % Lymphocytes (%) (Auto) 15 12-44 % Monocytes (%) (Auto) 9 0-12 % Eosinophils (%) (Auto) 1 0-10 % Basophils (%) (Auto) 0 0-10 % Neutrophils # (Auto) 6.6 1.8-7.8 X 10^3 Lymphocytes # (Auto) 1.4 1.0-4.0 X 10^3 Monocytes # (Auto) 0.8 0.0-1.0 X 10^3 Eosinophils # (Auto) 0.0 0.0-0.3 10^3/uL Basophils # (Auto) 0.0 0.0-0.1 10^3/uL Sodium Level 133 L 135-145 MMOL/L Potassium Level 3.8 3.6-5.0 MMOL/L Chloride Level 100 98-107 MMOL/L Carbon Dioxide Level 21 21-32 MMOL/L Anion Gap 12 5-14 MMOL/L Blood Urea Nitrogen 14 7-18 MG/DL Creatinine 1.13 0.60-1.30 MG/DL Estimat Glomerular Filtration Rate 51 BUN/Creatinine Ratio 12 Glucose Level 313 H 70-105 MG/DL Calcium Level 9.3 8.5-10.1 MG/DL Total Bilirubin 0.7 0.1-1.0 MG/DL Aspartate Amino Transf (AST/SGOT) 38 H 5-34 U/L Alanine Aminotransferase (ALT/SGPT) 48 0-55 U/L Alkaline Phosphatase 105 40-136 U/L Total Protein 8.0 6.4-8.2 GM/DL Albumin 4.1 3.2-4.5 GM/DL My Orders Orders - REX MEDRANO MD Ua Culture If Indicated (05/04/17 17:14) Cbc With Automated Diff (05/04/17 17:14) Comprehensive Metabolic Panel (05/04/17 17:14) Saline Lock/Iv-Start (05/04/17 17:14) Ns Iv 1000 Ml (Sodium Chloride 0.9%) (05/04/17 17:14) Ketorolac Injection (Toradol Injection) (05/04/17 17:14) Ct Abd/Pelvis Wo(Kidney Stone) (05/04/17 17:25) Abdomen/Kub 1view (05/04/17 17:58) Ceftriaxone Injection (Rocephin Injectio (05/04/17 18:15) Medications Given in ED Current Medications Medications Dose Ordered Sig/Vane Route Start Time Stop Time Status Last Admin Dose Admin Sodium Chloride 1,000 ml @ 0 mls/hr Q0M ONCE IV 05/04/17 17:14 05/04/17 17:15 DC 05/04/17 17:37 0 MLS/HR Vital Signs/I&O Vital Sign - Last 12Hours 05/04/17 17:11 Temp 98.7 Pulse 76 Resp 20 B/P (MAP) 192/105 Pulse Ox 96 O2 Delivery Room Air Progress Note : Progress Note Seen and evaluated. IV, labs and UA ordered. CT abdomen and pelvis kidney stone protocol ordered. Toradol 30 mg IV. Monitor patient. Pain is improved. CT does show moderate kidney stone in the left distal ureter near the bladder junction. CBC and CMP do not indicate any significant abnormality except for glucose. UA does show blood. There is some perinephric stranding. I did discuss the case with Dr. August and he will see her in the office as she is not having intractable pain at this point. KUB ordered. We will initiate outpatient antibiotics and pain medicine. Rocephin 1 g IV ordered for here. Discharged home with return precautions. Patient verbalize understanding instructions and agreement with plan. Diagnostic Imaging Diagonstic Imaging: CT Plain Films/CT/US/NM/MRI: abdomen, pelvis Comments NAME: ITZEL BALDWIN [facility] REC#: [id number] PT STATUS: REG ER : 1965 PHYSICIAN: REX MEDRANO MD ADMIT DATE: 05/04/17/ER Signed Date of Exam: 05/04/17 CT ABD/PELVIS WO(KIDNEY STONE) PROCEDURE: CT urinary tract, rule out kidney stone. TECHNIQUE: Multiple contiguous axial images were obtained through the abdomen and pelvis without the use of intravenous contrast. DATE: May 04, 2017. COMPARISON: CT abdomen and pelvis November 04, 2014. INDICATION: 51-year-old female, left-sided abdominal pain and hematuria. History of renal stones. FINDINGS: There are limitations for evaluation of the abdominal organs, neoplastic processes, abscess, and limited evaluation of the vasculature relating to the lack of intravenous contrast. There is a left lower lobe pulmonary nodule with small internal focus of gas which measures 1.6 x 1.4 cm in size. On comparison CT of November 04, 2016, this previously measured 1.3 x 1.3 cm in size and did not have internal cavitation. There is mild linear opacity in the right lower lobe compatible with subsegmental atelectasis and/or scarring. There is very mild subsegmental atelectasis and/or scarring in the lingula. There is no additional consolidation in the visualized portions of the lung bases. The liver is not nodular in outer contour. The liver does appear mildly prominent in size. The patient is status post cholecystectomy. There is no identified intrahepatic or extrahepatic bile duct dilation. The main pancreatic duct is not abnormally dilated. Unremarkable noncontrast appearance of the pancreatic parenchyma. The spleen is not enlarged. The adrenal glands are unremarkable. There are several nonobstructing right renal stones. There is a stone in the left distal ureter near the ureterovesical junction on axial image 129 which measures 4.9 mm in size. There is associated mild left hydronephrosis. There is mild asymmetric left perinephric stranding. There is no right-sided hydronephrosis. The urinary bladder is underdistended and grossly unremarkable in appearance. The uterus is not seen and may be surgically absent. The intestinal tract is not distended. The appendix is best seen on axial image 103 and adjacent sequential images. There is no evidence of acute appendicitis. There is no free intraperitoneal air. There is no drainable fluid collection. There is no free pelvic fluid. There is no identified abnormally enlarged lymph node within the abdomen or pelvis which meets CT size criteria for adenopathy. There is a 5 mm sclerotic lesion in the right iliac bone which is unchanged since November 04, 2014. IMPRESSION: CT ABDOMEN AND PELVIS. 1. 4.9 mm stone in the distal left ureter near the ureterovesical junction with associated mild left hydronephrosis. 2. Nonobstructing right renal stones. 3. Borderline hepatomegaly. 4. A 1.6 x 1.4 cm right lower lobe pulmonary nodule with internal cavitation which is increased in size since November 04, 2014 previously measuring 1.3 x 1.3 cm in size. This is not FDG avid on comparison PET/CT exam of November 14, 2014 and May 21, 2015. This does suggest most likely a benign etiology; however, etiology is indeterminant. Dictated by: Dictated on workstation # [id number] Dict: 05/04/171749 Trans: 05/04/171805 Interpreted by: KEVIN CASTELAN MD Electronically signed by: KEVIN CASTELAN MD 05/04/171805 Reviewed: Reviewed by Me Diagonstic Imaging: Xray Plain Films/CT/US/NM/MRI: abdomen Comments stone not clearly identified. No other acute findings. Reviewed: Reviewed by Me Departure Impression Impression: Primary Impression: Left ureteral calculus Disposition: 01 HOME, SELF-CARE Condition: Stable Departure-Patient Inst. Decision time for Depature: 18:11 Referrals: BEENA RANGEL DO (PCP) Primary Care Physician GIORGIO PEARSON (Family) Primary Care Physician JOSSE AUGUST MD Patient Instructions: Kidney Stones (DC) Add. Discharge Instructions: All discharge instructions reviewed with patient and/or family. Voiced understanding. Strain your urine at each urination. Take medications as directed. Follow-up with your DrRenee in a few days for recheck. Call Dr. August's office in the morning for appointment. Return for worse pain, fever, vomiting, weakness, breathing problems or other concerns as needed. Scripts Hydrocodone/Acetaminophen (Hydrocodon-Acetaminophn 10-325) 1 Each Tablet 1 EACH PO Q6H Y for PAIN, #16 TAB 0 Refills Prov: REX MEDRANO MD 05/04/17 Cephalexin (Cephalexin) 500 Mg Tablet 500 MG PO BID, #14 TAB 0 Refills Prov: REX MEDRANO MD 05/04/17 Copy Copies To 1: JOSSE AUGUST MD, TIMOTHY D MD May 04, 2017 17:30
[2017-05-04 17:36] LABS: BASOPHILS % (AUTO) 0 % (0-10); EOSINOPHILS % (AUTO) 1 % (0-10); LYMPHOCYTES # (AUTO) 1.4 X 10^3 (1.0-4.0); LYMPHOCYTES % (AUTO) 15 % (12-44); MEAN CORPUSCULAR HEMOGLOBIN 28 PG (25-34); MEAN CORPUSCULAR HGB CONC 33 G/DL (32-36); MEAN CORPUSCULAR VOLUME 85 FL (80-99); MONOCYTES # (AUTO) 0.8 X 10^3 (0.0-1.0); MONOCYTES % (AUTO) 9 % (0-12); NEUTROPHILS # (AUTO) 6.6 X 10^3 (1.8-7.8); NEUTROPHILS % (AUTO) 75 % (42-75); PLATELET COUNT 228 10^3/uL (130-400); RED BLOOD COUNT 5.07 10^6/uL (4.35-5.85); RED CELL DISTRIBUTION WIDTH 12.5 % (10.0-14.5); WHITE BLOOD COUNT 8.8 10^3/uL (4.3-11.0)
[2017-05-04 17:54] LABS: ALBUMIN 4.1 GM/DL (3.2-4.5); BILIRUBIN,TOTAL 0.7 MG/DL (0.1-1.0); CALCIUM 9.3 MG/DL (8.5-10.1); CREATININE SERUM 1.13 MG/DL (0.60-1.30); POTASSIUM 3.8 MMOL/L (3.6-5.0)
--- NOTE | 2017-05-04 18:07 | Diagnostic Imaging Report ---
PROCEDURE: CT urinary tract, rule out kidney stone. TECHNIQUE: Multiple contiguous axial images were obtained through the abdomen and pelvis without the use of intravenous contrast. DATE: May 04, 2017. COMPARISON: CT abdomen and pelvis November 04, 2014. INDICATION: 51-year-old female, left-sided abdominal pain and hematuria. History of renal stones. FINDINGS: There are limitations for evaluation of the abdominal organs, neoplastic processes, abscess, and limited evaluation of the vasculature relating to the lack of intravenous contrast. There is a left lower lobe pulmonary nodule with small internal focus of gas which measures 1.6 x 1.4 cm in size. On comparison CT of November 04, 2016, this previously measured 1.3 x 1.3 cm in size and did not have internal cavitation. There is mild linear opacity in the right lower lobe compatible with subsegmental atelectasis and/or scarring. There is very mild subsegmental atelectasis and/or scarring in the lingula. There is no additional consolidation in the visualized portions of the lung bases. The liver is not nodular in outer contour. The liver does appear mildly prominent in size. The patient is status post cholecystectomy. There is no identified intrahepatic or extrahepatic bile duct dilation. The main pancreatic duct is not abnormally dilated. Unremarkable noncontrast appearance of the pancreatic parenchyma. The spleen is not enlarged. The adrenal glands are unremarkable. There are several nonobstructing right renal stones. There is a stone in the left distal ureter near the ureterovesical junction on axial image 129 which measures 4.9 mm in size. There is associated mild left hydronephrosis. There is mild asymmetric left perinephric stranding. There is no right-sided hydronephrosis. The urinary bladder is underdistended and grossly unremarkable in appearance. The uterus is not seen and may be surgically absent. The intestinal tract is not distended. The appendix is best seen on axial image 103 and adjacent sequential images. There is no evidence of acute appendicitis. There is no free intraperitoneal air. There is no drainable fluid collection. There is no free pelvic fluid. There is no identified abnormally enlarged lymph node within the abdomen or pelvis which meets CT size criteria for adenopathy. There is a 5 mm sclerotic lesion in the right iliac bone which is unchanged since November 04, 2014. IMPRESSION: CT ABDOMEN AND PELVIS. 1. 4.9 mm stone in the distal left ureter near the ureterovesical junction with associated mild left hydronephrosis. 2. Nonobstructing right renal stones. 3. Borderline hepatomegaly. 4. A 1.6 x 1.4 cm right lower lobe pulmonary nodule with internal cavitation which is increased in size since November 04, 2014 previously measuring 1.3 x 1.3 cm in size. This is not FDG avid on comparison PET/CT exam of November 14, 2014 and May 21, 2015. This does suggest most likely a benign etiology; however, etiology is indeterminant. Dictated by: Dictated on workstation # [id number]
[2017-05-04] MEDS ORDERED: CEPH500T PO (18:14)
[2017-05-04] MEDS ORDERED: HYDR-3820 PO (18:14)
[2017-05-04] MEDS ORDERED: cefTRIAXone INJECTION 1,000 MG in NS (IVPB) 50 ML IV ONE (18:15)
--- NOTE | 2017-05-04 18:26 | Diagnostic Imaging Report ---
Clinical indication: Patient with left-sided abdominal pain with hematuria. Patient has history of kidney stones on the left and right side. Exam: KUB x-ray. Comparison: None. Findings: Of note, bowel gas obscures portions of both renal shadows making it difficult to accurately evaluate for stones. There are no focal calcifications overlying the expected regions/ pathways of both kidneys, ureters, and bladder regions. There is a nonobstructed bowel gas pattern. There is no evidence of abdominal free air. Surgical clips are seen overlying the right upper quadrant which could be related to cholecystectomy changes. There is a moderate amount of stool in the right colon region. The visualized bones and extra abdominal soft tissues are unremarkable. Impression: 1: Bowel gas obscures portions of both renal shadows making it difficult to accurately evaluate for stones. 2: There is moderate amount of stool involving the right colon. Dictated by: Dictated on workstation # [id number]
[2017-05-04 18:55] VITALS: BP 192/105
[2017-05-05] MEDS ORDERED: PHEN-639 PO (18:53)
[2017-05-05] MEDS ORDERED: ONDA8TAB13 PO (18:53)
[2017-05-05] MEDS ORDERED: OXYC-201 PO (18:53)
== END 2017-05-04 18:55 | disposition home or self-care (01) ==
LOC: EDUNIT# 16:31 → ER 16:33
DX: N20.1 Calculus of ureter (principal); E11.9 Type 2 diabetes mellitus without complications; G47.30 Sleep apnea, unspecified; I10 Essential (primary) hypertension; Z90.710 Acquired absence of both cervix and uterus; Z87.59 Personal history of other complications of pregnancy, childbirth and the puerperium; Z79.4 Long term (current) use of insulin; Z87.891 Personal history of nicotine dependence
CPT/HCPCS: 36415; 74000; 74176; 80053; 81000; 85025; 96361; 96365; 96375

== ENCOUNTER 2017-05-05 17:24 | Emergency (ER) | payer SELFPAY ==
[~2017-05-05] VITALS: Ht 167.6 cm; Wt 158.8 kg
[~2017-05-05 17:24] MED LIST changes: +CEPH500T PO; +HYDR-3820 PO
--- NOTE | 2017-05-05 18:12 | ED GU-Female ---
General Chief Complaint: Abdominal/GI Problems Stated Complaint: KIDNEY STONES Nursing Triage Note: ARRIVED VIA AMBULATORY WITH COMPLAINTS OF LEFT SIDED ABD PAIN CAUSED BY A 8MM KIDNEY STONE THAT HYDROCODONE 10 IS NOT HELPING. STATES SHE CALLED [facility] OFFICE BUT THEY WANT $500 UP FRONT THAT SHE DOES NOT HAVE. Nursing Sepsis Screen: No Definite Risk Source: patient Exam Limitations: no limitations History of Present Illness Time seen by provider: 18:11 Initial Comments 51-year-old female patient presents to the emergency department complains of left-sided abdominal pain. Patient was seen yesterday in the emergency department by Dr. Medrano. Patient reports contacting Dr. Garcia's office and was told she needed $500 up front. States she does not have the money to pay. States hydrocodone 10 mg is not helping with pain. Timing/Duration: constant Severity/Quality: aching, sharp, stabbing Location: left flank Radiation: back (lt back) Modifying Factors: Worsens With Urinating Allergies and Home Medications Allergies Coded Allergies: lisinopril (Verified Allergy, Unknown, 04/18/15) Home Medications Cephalexin 500 Mg Tablet, 500 MG PO BID, #14 Ref 0 Prescribed by: REX MEDRANO on 05/04/17 1814 Ciprofloxacin HCl 500 Mg Tablet, 500 MG PO BID, #12 Ref 0 Prescribed by: REX MEDRANO on 05/06/17 2249 Furosemide 80 Mg Tablet, 80 MG PO DAILY, (Reported) Hydrocodone/Acetaminophen 1 Each Tablet, 1 EACH PO Q6H PRN for PAIN, #16 Ref 0 Prescribed by: REX MEDRANO on 05/04/171813 Insulin Detemir 100 Unit/1 Ml Insuln.pen, SQ, (Reported) Liraglutide 0.6 Mg/0.1 Ml Pen.injctr, SQ, (Reported) Losartan Potassium 50 Mg Tablet, 50 MG PO DAILY, (Reported) Metoprolol Tartrate 100 Mg Tablet, 100 MG PO BID, (Reported) Ondansetron 8 Mg Tab.rapdis, 8 MG PO Q6H PRN for NAUSEA/VOMITING-1ST LINE, #10 Ref 0 Prescribed by: GINNY FELDMAN on 05/05/17 1853 Oxycodone HCl/Acetaminophen 1 Each Tablet, 1 EACH PO Q4H PRN for pain, #14 Ref 0 Prescribed by: GINNY FELDMAN on 05/05/171852 Phenazopyridine HCl 100 Mg Tablet, 100-200 MG PO Q8H PRN for SPASMS, #14 Ref 1 Prescribed by: GINNY FELDMAN on 05/05/171852 Pioglitazone HCl 30 Mg Tablet, 30 MG PO DAILY, (Reported) Potassium Chloride 10 Meq Capsule.er, 20 MEQ PO BID, (Reported) TAKES 2 (10MEQ) CAPSULES Pravastatin Sodium 20 Mg Tablet, 20 MG PO DAILY, (Reported) Constitutional: No chills, No fever, No malaise Respiratory: no symptoms reported Cardiovascular: no symptoms reported Gastrointestinal: see HPI, abdominal pain, No constipation, No diarrhea, No nausea, No vomiting Genitourinary: see HPI, dysuria, frequency, flank pain, denies hematuria, pain Musculoskeletal: see HPI, back pain Skin: no symptoms reported Psychiatric/Neurological: No Symptoms Reported All Other Systemes Reviewed Negative Unless Noted: Yes (Negative excepted noted.) Past Djqdoib-Ptefnv-Tpuigr Hx Patient Social History Alcohol Use: Denies Use Recreational Drug Use: No Drug of Choice: PAST HX Smoking Status: Never a Smoker 2nd Hand Smoke Exposure: No Recent Foreign Travel: No Contact w/Someone Who Travel: No Recent Infectious Disease Expo: No Recent Hopitalizations: No Seasonal Allergies Seasonal Allergies: No Surgeries History of Surgeries: Yes (FX WRIST, ) Surgeries: Section, Gallbladder, Hysterectomy Respiratory History of Respiratory Disorde: Yes Respiratory Disorders: Sleep Apnea Cardiovascular History of Cardiac Disorders: Yes Cardiac Disorders: Hypertension Neurological History of 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) 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 System Hx 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 Disorders: No Sexually Transmitted Disease: No HIV/AIDS: No Female 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 Disorders: Denies 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 Genitourinary Genitourinary Disorders: Kidney Infection, Kidney Stones Gastrointestinal History of Gastrointestinal Di: No Musculoskeletal History of Musculoskeletal Dis: Yes Musculoskeletal Disorders: Back Injury Endocrine History of Endocrine Disorders: Yes Endocrine Disorders: Diabetes, Non-Insulin dep Cancer History of Cancer: No Psychosocial History of Psychiatric Problem: No Integumentary History of Skin or Integumenta: No Blood Transfusions History of Blood Disorders: No Adverse Reaction to a Blood Tr: No Reviewed Nursing Assessment Reviewed/Agree w Nursing PMH: Yes Family Medical History Significant Family History: No Pertinent Family Hx Family Medial History: Cancer AUNT (1 OF BREAST CA 1 OF LUNG CA) Family history: Hypertension 03 MOTHER Physical Exam Vital Signs Vital Sign - Last 12Hours 05/05/17 17:40 Temp 98.0 Pulse 98 Resp 18 B/P (MAP) 200/103 Pulse Ox 94 Capillary Refill : Less Than 3 Seconds General Appearance: WD/WN, no apparent distress Neck: supple, normal inspection Cardiovascular: regular rate, rhythm, no murmur Respiratory: lungs clear, normal breath sounds, no respiratory distress, no accessory muscle use Gastrointestinal: normal bowel sounds, soft, no organomegaly, No distended, guarding (left lower quadrant and left flank guarding), No rebound, tenderness ( left lower quadrant and left flank) Back: normal inspection, No CVA tenderness (R), CVA tenderness (L) Extremities: no pedal edema, normal capillary refill Neurologic/Psychiatric: alert, normal mood/affect, oriented x 3 Skin: normal color, warm/dry Progress/Results/Core Measures Results/Orders My Orders Orders - GINNY FELDMAN PA Im/Sub-Q Injection Non-Ab Ed (05/05/17 ) Vital Signs/I&O Blood Pressure Mean: 135 Diagnostic Imaging Diagonstic Imaging: Xray Plain Films/CT/US/NM/MRI: abdomen Comments FINDINGS: Bowel gas pattern appears unremarkable. There is a moderate amount of stool in the colon. There are surgical clips in the right upper quadrant from previous cholecystectomy. No abnormal calcifications are suspected. There is a transitional segment at the iliosacral junction with sacralization of L5 on the left. IMPRESSION: There is a moderate amount of stool in the colon. Otherwise, unremarkable abdomen. No acute process is suspected. Dictated by: Dictated on workstation # [id number] Reviewed: Reviewed by Me (radiology report reviewed by me) Departure Communication (Admissions) Progress Notes Diagnostic findings discussed with the patient. Patient reports feeling much better with morphine and Toradol. Plan for discharge to home. Impression Impression: Primary Impression: Left ureteral calculus Disposition: HOME, SELF-CARE Condition: Improved Departure-Patient Inst. Decision time for Depature: 18:51 Referrals: BEENA RANGEL DO (PCP) Primary Care Physician GIORGIO PEARSON (Family) Primary Care Physician Patient Instructions: Kidney Stones (DC) Add. Discharge Instructions: All discharge instructions reviewed with patient and/or family. Voiced understanding. Medications as instructed. Do not take oxycodone with hydrocodone. Ibuprofen 800 mg by mouth every 8 hours as needed for pain. Drink plenty of fluids. You may drink caffeine as it will help to flush the kidney stone. Diet as tolerated. Strain all urines. Follow-up with your family practitioner for recheck as an outpatient call tomorrow morning for appointment time. Return to the emergency department for worsened pain, fever, inability to urinate, visible blood in the urine, abdominal swelling, or any other concerns. Scripts Ondansetron (Ondansetron Odt) 8 Mg Tab.rapdis 8 MG PO Q6H Y for NAUSEA/VOMITING-1ST LINE, #10 TAB 0 Refills Prov: GINNY FELDMAN 05/05/17 Phenazopyridine HCl (Pyridium) 100 Mg Tablet 100-200 MG PO Q8H Y for SPASMS, #14 TAB 1 Refill Prov: GINNY FELDMAN 05/05/17 Oxycodone HCl/Acetaminophen (Percocet 7.5-325 mg Tablet) 1 Each Tablet 1 EACH PO Q4H Y for pain, #14 TAB 0 Refills Prov: GINNY FELDMAN 05/05/17 Work/School Note: Work Release Form Date Seen in the Emergency Department: May 05, 2017 Return to Work: May 07, 2017 GINNY FELDMAN May 05, 2017 18:12
[2017-05-05] MEDS ORDERED: ONDANSETRON 4 MG (ZOFRAN) ORAL DISSOLVE TAB SL STA (18:20)
[2017-05-05] MEDS ORDERED: morphine INJ 10 MG/ML 1ML (SYR OR VIAL) IM STA (18:20)
--- NOTE | 2017-05-05 18:38 | Diagnostic Imaging Report ---
INDICATION: Abdominal pain. COMPARISON: 05/04/2017. EXAMINATION: Supine views of the abdomen were obtained. FINDINGS: Bowel gas pattern appears unremarkable. There is a moderate amount of stool in the colon. There are surgical clips in the right upper quadrant from previous cholecystectomy. No abnormal calcifications are suspected. There is a transitional segment at the iliosacral junction with sacralization of L5 on the left. IMPRESSION: There is a moderate amount of stool in the colon. Otherwise, unremarkable abdomen. No acute process is suspected. Dictated by: Dictated on workstation # [id number]
[2017-05-05] MEDS ORDERED: OXYC-201 PO (18:53)
[2017-05-05] MEDS ORDERED: ONDA8TAB13 PO (18:53)
[2017-05-05] MEDS ORDERED: PHEN-639 PO (18:53)
[2017-05-05] MEDS ORDERED: KETOROLAC 60 MG/2 ML VIAL IM STA (19:21)
[2017-05-05] MEDS ORDERED: PHENAZOPYRIDINE 100 MG (PYRIDIUM) TABLET PO STA (19:21)
[2017-05-05 20:23] VITALS: BP 150/98
[2017-05-06] MEDS ORDERED: CIPR500T4 PO (22:49)
== END 2017-05-05 20:23 | disposition home or self-care (01) ==
LOC: EDUNIT# 17:24 → ER 17:25
DX: N20.1 Calculus of ureter (principal); E11.9 Type 2 diabetes mellitus without complications; I10 Essential (primary) hypertension; G47.30 Sleep apnea, unspecified; Z87.59 Personal history of other complications of pregnancy, childbirth and the puerperium; Z87.828 Personal history of other (healed) physical injury and trauma; Z90.710 Acquired absence of both cervix and uterus; Z79.4 Long term (current) use of insulin; Z80.3 Family history of malignant neoplasm of breast; Z80.1 Family history of malignant neoplasm of trachea, bronchus and lung
CPT/HCPCS: 74000; 96372; 99284

== ENCOUNTER 2017-05-06 20:54 | Emergency (ER) | payer SELFPAY ==
[~2017-05-06] VITALS: Ht 167.6 cm; Wt 159.0 kg
[~2017-05-06 20:54] MED LIST changes: +ONDA8TAB13 PO; +OXYC-201 PO; +PHEN-639 PO
[2017-05-06] MEDS ORDERED: NS IV 1000 ML 1,000 ML IV ONE (21:06)
[2017-05-06] MEDS ORDERED: HYDROmorphone (DILAUDID) 2 MG/ML VIAL IVP STA (21:10)
--- NOTE | 2017-05-06 21:17 | ED GU-Female ---
General Stated Complaint: ABDOMINAL PAIN/KIDNEY STONES Source: patient Exam Limitations: no limitations History of Present Illness Time seen by provider: 21:05 Initial Comments Here with report of persistent left lower quadrant abdominal pain that radiates to the groin. Has known kidney stone in the left distal ureter near the bladder junction of about 5 mm. She has tried outpatient therapy and is not working. She is unable to get into the urologist due to cost. Does have some burning with urination. Denies nausea or vomiting. Pain medicines are helping for a while but do not last very long and she has markedly increasing pain. States that she has been straining her urine and has not found a stone. She had called her doctor's office today and the nurse told her that she would likely be admitted tonight and to present to the ER. She is here for further evaluation. Timing/Duration: getting worse Severity/Quality: moderate Location: LLQ, left flank Radiation: groin Activities at Onset: none Associated Symptoms: abdominal pain, dysuria, No fever/chills, No lower back pain, No nausea/vomiting, urinary frequency Allergies and Home Medications Allergies Coded Allergies: lisinopril (Verified Allergy, Unknown, 04/18/15) Home Medications Cephalexin 500 Mg Tablet, 500 MG PO BID, #14 Ref 0 Prescribed by: REX MEDRANO on 05/04/171813 Furosemide 80 Mg Tablet, 80 MG PO DAILY, (Reported) Hydrocodone/Acetaminophen 1 Each Tablet, 1 EACH PO Q6H PRN for PAIN, #16 Ref 0 Prescribed by: REX MEDRANO on 05/04/171813 Insulin Detemir 100 Unit/1 Ml Insuln.pen, SQ, (Reported) Liraglutide 0.6 Mg/0.1 Ml Pen.injctr, SQ, (Reported) Losartan Potassium 50 Mg Tablet, 50 MG PO DAILY, (Reported) Metoprolol Tartrate 100 Mg Tablet, 100 MG PO BID, (Reported) Ondansetron 8 Mg Tab.rapdis, 8 MG PO Q6H PRN for NAUSEA/VOMITING-1ST LINE, #10 Ref 0 Prescribed by: GINNY FELDMAN on 05/05/171852 Oxycodone HCl/Acetaminophen 1 Each Tablet, 1 EACH PO Q4H PRN for pain, #14 Ref 0 Prescribed by: GINNY FELDMAN on 05/05/171852 Phenazopyridine HCl 100 Mg Tablet, 100-200 MG PO Q8H PRN for SPASMS, #14 Ref 1 Prescribed by: GINNY FELDMAN on 05/05/171852 Pioglitazone HCl 30 Mg Tablet, 30 MG PO DAILY, (Reported) Potassium Chloride 10 Meq Capsule.er, 20 MEQ PO BID, (Reported) TAKES 2 (10MEQ) CAPSULES Pravastatin Sodium 20 Mg Tablet, 20 MG PO DAILY, (Reported) Constitutional: see HPI, No chills, No fever EENTM: no symptoms reported Respiratory: no symptoms reported Cardiovascular: no symptoms reported Gastrointestinal: no symptoms reported Genitourinary: see HPI Musculoskeletal: no symptoms reported All Other Systemes Reviewed Negative Unless Noted: Yes Past Ifcbwcp-Xyzfcn-Vangzy Hx Patient Social History Alcohol Use: Denies Use Recreational Drug Use: No Drug of Choice: PAST HX Smoking Status: Never a Smoker 2nd Hand Smoke Exposure: No Recent Foreign Travel: No Contact w/Someone Who Travel: No Recent Hopitalizations: No Seasonal Allergies Seasonal Allergies: No Surgeries History of Surgeries: Yes (FX WRIST, ) Surgeries: Section, Gallbladder, Hysterectomy Respiratory History of Respiratory Disorde: Yes Respiratory Disorders: Sleep Apnea Cardiovascular History of Cardiac Disorders: Yes Cardiac Disorders: Hypertension Neurological History of 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) 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 System Hx 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 Disorders: No Sexually Transmitted Disease: No HIV/AIDS: No Female 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 Genitourinary Genitourinary Disorders: Kidney Infection, Kidney Stones Gastrointestinal History of Gastrointestinal Di: No Musculoskeletal History of Musculoskeletal Dis: Yes Musculoskeletal Disorders: Back Injury Endocrine History of Endocrine Disorders: Yes Endocrine Disorders: Diabetes, Non-Insulin dep Cancer History of Cancer: No Psychosocial History of Psychiatric Problem: No Integumentary History of Skin or Integumenta: No Blood Transfusions History of Blood Disorders: No Adverse Reaction to a Blood Tr: No Reviewed Nursing Assessment Reviewed/Agree w Nursing PMH: Yes Family Medical History Significant Family History: No Pertinent Family Hx Family Medial History: Cancer AUNT (1 OF BREAST CA 1 OF LUNG CA) Family history: Hypertension 03 MOTHER Physical Exam Vital Signs Vital Sign - Last 12Hours 05/06/17 21:20 Temp 97.7 Pulse 90 Resp 18 B/P (MAP) 170/98 Pulse Ox 95 O2 Delivery Room Air Capillary Refill : General Appearance: WD/WN, no apparent distress, obese HEENT: PERRL/EOMI, pharynx normal Neck: full range of motion, supple Cardiovascular: regular rate, rhythm, no murmur Respiratory: lungs clear, normal breath sounds Gastrointestinal: non tender, soft Back: normal inspection, no CVA tenderness, no vertebral tenderness Extremities: non-tender, normal inspection Neurologic/Psychiatric: alert, oriented x 3 Skin: normal color, warm/dry Progress/Results/Core Measures Results/Orders Lab Results Laboratory Tests Test 05/06/17 21:15 05/06/17 21:20 Range/Units White Blood Count 3.8 L 4.3-11.0 10^3/uL Red Blood Count 4.70 4.35-5.85 10^6/uL Hemoglobin 13.3 11.5-16.0 G/DL Hematocrit 41 35-52 % Mean Corpuscular Volume 87 80-99 FL Mean Corpuscular Hemoglobin 28 25-34 PG Mean Corpuscular Hemoglobin Concent 33 32-36 G/DL Red Cell Distribution Width 12.6 10.0-14.5 % Platelet Count 215 130-400 10^3/uL Mean Platelet Volume 10.1 7.4-10.4 FL Neutrophils (%) (Auto) 50 42-75 % Lymphocytes (%) (Auto) 38 12-44 % Monocytes (%) (Auto) 9 0-12 % Eosinophils (%) (Auto) 2 0-10 % Basophils (%) (Auto) 1 0-10 % Neutrophils # (Auto) 1.9 1.8-7.8 X 10^3 Lymphocytes # (Auto) 1.5 1.0-4.0 X 10^3 Monocytes # (Auto) 0.4 0.0-1.0 X 10^3 Eosinophils # (Auto) 0.1 0.0-0.3 10^3/uL Basophils # (Auto) 0.0 0.0-0.1 10^3/uL Sodium Level 139 135-145 MMOL/L Potassium Level 4.1 3.6-5.0 MMOL/L Chloride Level 104 98-107 MMOL/L Carbon Dioxide Level 25 21-32 MMOL/L Anion Gap 10 5-14 MMOL/L Blood Urea Nitrogen 18 7-18 MG/DL Creatinine 1.20 0.60-1.30 MG/DL Estimat Glomerular Filtration Rate 47 BUN/Creatinine Ratio 15 Glucose Level 389 H 70-105 MG/DL Calcium Level 10.0 8.5-10.1 MG/DL Urine Color RODOLFO H Urine Clarity CLEAR Urine pH 5 5-9 Urine Specific [place] 1.020 1.016-1.022 Urine Protein 1+ H NEGATIVE Urine Glucose (UA) 4+ H NEGATIVE Urine Ketones NEGATIVE NEGATIVE Urine Nitrite POSITIVE H NEGATIVE Urine Bilirubin NEGATIVE NEGATIVE Urine Urobilinogen NORMAL NORMAL MG/DL Urine Leukocyte Esterase NEGATIVE NEGATIVE Urine RBC (Auto) 1+ H NEGATIVE Urine RBC RARE /HPF Urine WBC 2-5 /HPF Urine Squamous Epithelial Cells 2-5 /HPF Urine Crystals NONE /LPF Urine Bacteria TRACE /HPF Urine Casts NONE /LPF Urine Mucus NEGATIVE /LPF Urine Culture Indicated YES My Orders Orders - REX MEDRANO MD Basic Metabolic Panel (05/06/17 21:06) Cbc With Automated Diff (05/06/17 21:06) Saline Lock/Iv-Start (05/06/17 21:06) Ns Iv 1000 Ml (Sodium Chloride 0.9%) (05/06/17 21:06) Hydromorphone Injection (Dilaudid Inject (05/06/17 21:10) Ua Culture If Indicated (05/06/17 21:10) Ct Abd/Pelvis Wo(Kidney Stone) (05/06/17 21:11) Urine Culture (05/06/17 21:20) Levaquin 500mg Po (05/06/17 22:36) Medications Given in ED Current Medications Medications Dose Ordered Sig/Vane Route Start Time Stop Time Status Last Admin Dose Admin Sodium Chloride 1,000 ml @ 0 mls/hr Q0M ONCE IV 05/06/17 21:06 05/06/17 21:08 DC 05/06/17 21:23 0 MLS/HR Vital Signs/I&O Vital Sign - Last 12Hours 05/06/17 21:20 Temp 97.7 Pulse 90 Resp 18 B/P (MAP) 170/98 Pulse Ox 95 O2 Delivery Room Air Progress Note : Progress Note Seen and evaluated. IV, labs and UA ordered. We will get repeat CT scan for her vacation a stone in current location as the previous x-rays do not demonstrate visualization of stone at all including the x-ray taken on the same day that the stone was found on CT scan. This limits evaluation via x-ray. Dilaudid 1 mg IV and normal saline 1 L bolus. Monitor patient. 1030: CT results noted. No kidney stone demonstrated on the left ureter down. Patient does have urinary tract infection. Levaquin 500 mg by mouth as Keflex appears to be not working. We will continue outpatient Cipro. No indications for admission. Discharged home with return precautions. Patient verbalize understanding instructions and agreement with plan. Diagnostic Imaging Diagonstic Imaging: CT Plain Films/CT/US/NM/MRI: abdomen, pelvis Comments VIA [facility]. [place], [place] NAME: ITZEL BALDWIN [facility] REC#: [id number] PT STATUS: REG ER : 1965 PHYSICIAN: REX MEDRANO MD ADMIT DATE: 05/06/17/ER Draft Date of Exam:05/06/17 CT ABD/PELVIS WO(KIDNEY STONE) PROCEDURE: CT urinary tract, rule out kidney stone. TECHNIQUE: Multiple contiguous axial images were obtained through the abdomen and pelvis without the use of intravenous contrast. DATE: May 06, 2017. COMPARISON: KUB, May 05, 2017. CT abdomen pelvis, May 04, 2017. INDICATION: 51-year-old female, left-sided abdominal pain. FINDINGS: There are limitations for evaluation of the abdominal organs, neoplastic processes, abscess, and limited evaluation of the vasculature relating to the lack of intravenous contrast. There is a right lower lobe pulmonary nodule with central cavitation which measures 1.5 cm in size. This is unchanged since May 04, 2017 and as described previously on prior report. There are mild linear opacities in the right lower lobe which may relate to subsegmental atelectasis and/or scarring. There is no new focal airspace consolidation in the visualized lung bases. The heart is not enlarged. There is no pericardial effusion. The liver is borderline enlarged. The outer liver contours are not grossly nodular. The patient is status post cholecystectomy. There is no intrahepatic or extrahepatic bile duct dilation. The main pancreatic duct is not abnormally dilated. Unremarkable appearance of the pancreatic parenchyma. The spleen is not enlarged. The adrenal glands are unremarkable. There are several nonobstructing right renal stones. There is resolution of the previously noted stone in the left distal ureter seen on May 04, 2017. There is no current ureteral stone. There is no hydronephrosis on the current exam. There is no pronounced asymmetric perinephric stranding. The urinary bladder is unremarkable in appearance. The uterus is not seen and may be surgically absent. The intestinal tract is not distended. The appendix is well seen on axial image 116 and adjacent sequential images. There is no evidence of acute appendicitis. There is no free intraperitoneal air. There is no drainable fluid collection. There is mild nonspecific dalton mesenteric stranding. There is no identified lymph nodes in the abdomen or pelvis which specifically meets CT size criteria for adenopathy. There are atherosclerotic calcifications. There is no identified interval acute bony abnormality. IMPRESSION: CT ABDOMEN AND PELVIS: 1. Resolution of previously noted 4 mm stone in the left distal ureter with resolution of previously noted mild left hydronephrosis. 2. Nonobstructing right renal stones. 3. Redemonstrated right lower lobe pulmonary nodule, as described on prior report. Dictated on workstation # [id number] Dict: 05/06/17 2157 Trans: 05/06/17 2205 [facility] [id number] Interpreted by: KEVIN CASTELAN MD Electronically signed by: Departure Impression Impression: Primary Impression: Urinary tract infection Qualified Codes: N30.00 - Acute cystitis without hematuria Disposition: HOME, SELF-CARE Condition: Improved Departure-Patient Inst. Decision time for Depature: 22:40 Referrals: BEENA RANGEL DO (PCP) Primary Care Physician GIORGIO PEARSON (Family) Primary Care Physician Patient Instructions: Urinary Tract Infection, Adult (DC) Add. Discharge Instructions: Take medications as directed. You may continue ibuprofen 800 mg every 8 hours as needed for pain. Follow-up with your DrRenee in a few days for recheck. Return for worse pain, fever, vomiting, weakness, breathing problems or other concerns as needed. Drink plenty of fluids. Scripts Ciprofloxacin HCl (Ciprofloxacin HCl) 500 Mg Tablet 500 MG PO BID, #12 TAB 0 Refills Prov: REX MEDRANO MD 05/06/17 Copy Copies To 1: PEGGY TORRES TIMOTHY D MD May 06, 2017 21:17
[2017-05-06 21:23] LABS: BASOPHILS % (AUTO) 1 % (0-10); EOSINOPHILS # (AUTO) 0.1 10^3/uL (0.0-0.3); EOSINOPHILS % (AUTO) 2 % (0-10); LYMPHOCYTES # (AUTO) 1.5 X 10^3 (1.0-4.0); LYMPHOCYTES % (AUTO) 38 % (12-44); MEAN CORPUSCULAR HEMOGLOBIN 28 PG (25-34); MEAN CORPUSCULAR HGB CONC 33 G/DL (32-36); MEAN CORPUSCULAR VOLUME 87 FL (80-99); MEAN PLATELET VOLUME 10.1 FL (7.4-10.4); MONOCYTES # (AUTO) 0.4 X 10^3 (0.0-1.0); MONOCYTES % (AUTO) 9 % (0-12); NEUTROPHILS # (AUTO) 1.9 X 10^3 (1.8-7.8); NEUTROPHILS % (AUTO) 50 % (42-75); PLATELET COUNT 215 10^3/uL (130-400); RED CELL DISTRIBUTION WIDTH 12.6 % (10.0-14.5); WHITE BLOOD COUNT 3.8 10^3/uL (4.3-11.0)
[2017-05-06 21:28] LABS: BILIRUBIN,URINE NEGATIVE (NEGATIVE); KETONES,URINE NEGATIVE (NEGATIVE); LEUKOCYTE ESTERASE ,URINE NEGATIVE (NEGATIVE); NITRITE,URINE POSITIVE (NEGATIVE); PH,URINE 5 (5-9); PROTEIN,URINE 1+ (NEGATIVE); UROBILINOGEN,URINE NORMAL (NORMAL)
[2017-05-06 21:42] LABS: CREATININE SERUM 1.2 MG/DL (0.60-1.30); POTASSIUM 4.1 MMOL/L (3.6-5.0)
--- NOTE | 2017-05-06 22:05 | Diagnostic Imaging Report ---
PROCEDURE: CT urinary tract, rule out kidney stone. TECHNIQUE: Multiple contiguous axial images were obtained through the abdomen and pelvis without the use of intravenous contrast. DATE: May 06, 2017. COMPARISON: KUB, May 05, 2017. CT abdomen pelvis, May 04, 2017. INDICATION: 51-year-old female, left-sided abdominal pain. FINDINGS: There are limitations for evaluation of the abdominal organs, neoplastic processes, abscess, and limited evaluation of the vasculature relating to the lack of intravenous contrast. There is a right lower lobe pulmonary nodule with central cavitation which measures 1.5 cm in size. This is unchanged since May 04, 2017 and as described previously on prior report. There are mild linear opacities in the right lower lobe which may relate to subsegmental atelectasis and/or scarring. There is no new focal airspace consolidation in the visualized lung bases. The heart is not enlarged. There is no pericardial effusion. The liver is borderline enlarged. The outer liver contours are not grossly nodular. The patient is status post cholecystectomy. There is no intrahepatic or extrahepatic bile duct dilation. The main pancreatic duct is not abnormally dilated. Unremarkable appearance of the pancreatic parenchyma. The spleen is not enlarged. The adrenal glands are unremarkable. There are several nonobstructing right renal stones. There is resolution of the previously noted stone in the left distal ureter seen on May 04, 2017. There is no current ureteral stone. There is no hydronephrosis on the current exam. There is no pronounced asymmetric perinephric stranding. The urinary bladder is unremarkable in appearance. The uterus is not seen and may be surgically absent. The intestinal tract is not distended. The appendix is well seen on axial image 116 and adjacent sequential images. There is no evidence of acute appendicitis. There is no free intraperitoneal air. There is no drainable fluid collection. There is mild nonspecific dalton mesenteric stranding. There is no identified lymph nodes in the abdomen or pelvis which specifically meets CT size criteria for adenopathy. There are atherosclerotic calcifications. There is no identified interval acute bony abnormality. IMPRESSION: CT ABDOMEN AND PELVIS: 1. Resolution of previously noted 4 mm stone in the left distal ureter with resolution of previously noted mild left hydronephrosis. 2. Nonobstructing right renal stones. 3. Redemonstrated right lower lobe pulmonary nodule, as described on prior report. Dictated by: Dictated on workstation # [id number]
[2017-05-06] MEDS ORDERED: LEVOFLOXACIN 500 MG TAB (LEVAQUIN) PO STA (22:36)
[2017-05-06] MEDS ORDERED: CIPR500T4 PO (22:49)
[2017-05-06 23:04] VITALS: BP 156/88
== END 2017-05-06 23:04 | disposition home or self-care (01) ==
LOC: EDUNIT# 20:54 → ER 20:55
DX: N39.0 Urinary tract infection, site not specified (principal); E11.9 Type 2 diabetes mellitus without complications; I10 Essential (primary) hypertension; Z87.59 Personal history of other complications of pregnancy, childbirth and the puerperium; Z87.828 Personal history of other (healed) physical injury and trauma; Z87.442 Personal history of urinary calculi; Z90.710 Acquired absence of both cervix and uterus; Z79.4 Long term (current) use of insulin; Z80.1 Family history of malignant neoplasm of trachea, bronchus and lung; Z80.3 Family history of malignant neoplasm of breast
CPT/HCPCS: 36415; 74176; 80048; 81000; 85025; 87088; 96361; 96374